=== PATIENT | male | born 1980 | race Caucasian/White ===

== ENCOUNTER 2016-04-20 11:11 | Emergency (ER) | payer MEDICAID, OTHER ==
[~2016-04-20 11:11] MED LIST: BUPR15TAXL PO; MINI1CAP PO; TRAZ150T14 PO; TRAZ1TAB25 PO
[2016-04-20] MEDS ORDERED: MAGNESIUM CITRATE 300 ML BTL As Ordered ONE (12:17)
--- NOTE | 2016-04-20 12:26 | EDDOCDS ---
Nurse's Notes [facility] Name: Christiano Pedro Age: 35 yrs Sex: Male : 1980 Arrival Date: 04/20/2016 Time: 11:11 Bed TR2 Private MD: NO PRIMARY PHYSICIAN, . Diagnosis: Constipation Presentation: 04/20 11:18 Presenting complaint: Patient states: hx IBS- no appetite, losing weight, not having srm regular BM's. left sided abd pain and "clenched" feeling. symptoms for a week and half- no changes in symptoms. nausea no vomiting. Risk factors: the patient reports not having a history of previous torsion. Adult Sepsis Screening: The patient does not have new or worsening altered mentation. Patient's respiratory rate is less than 22. Systolic blood pressure is greater than 100. Patient has a qSOFA score of 0- Negative Sepsis Screen. Suicide/Homicide risk assessment- the patient denies having any suicidal and/or homicidal ideations and does not present with any other emotional, behavioral or mental health complaints. 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 Transition of care: patient was not received from another setting of care. 11:18 Acuity: ATUL Level 3 srm 11:18 Method Of Arrival: Walkin/Carried/Asstd srm Triage Assessment: 11:21 General: Appears in no apparent distress, Behavior is appropriate for age, cooperative. srm Pain: Pain currently is 2 out of 10 on a pain scale. HIV screening NA for this visit Offered previously. GI: Reports nausea, mid to left sided abd pain. Historical: - Allergies: no known allergies; - Home Meds: 1. bupropion HCl 150 mg Oral Tb24 1 tab once daily 2. lamotrigine 100 mg Oral TbDL 1 tab 2 times per day 3. trazodone 150 mg Oral tab 1 tab nightly 4. Suboxone 8-2 mg SL subl 1 tab once daily - PMHx: Anxiety Disorder; Bipolar disorder; Depression; IBS; - PSHx: L elbow repair; - Social history: Smoking status: Patient uses tobacco products, current every day smoker. No barriers to communication noted, The patient speaks fluent Occitan, Speaks appropriately for age. - Family history: Not pertinent. - : The pt / caregiver states he / she is not on anticoagulants. Home medication list is obtained from the patient. - Exposure Risk Screening:: None identified. Screenin:23 Screening information is obtained from the patient. Fall risk: No risks identified. ttb Assistance ADL's: requires no assistance with activities of daily living. Abuse/DV Screen: The patient / caregiver reports he/she is: not in a situation that causes fear, pain or injury. Nutritional screening: No deficits noted. Advance Directives: Currently, there is no health care proxy. home support is adequate. Assessment: 12:23 General: Appears in no apparent distress, well nourished, well groomed, Behavior is ttb appropriate for age, cooperative, pleasant. Pain: Location: abd : generalized. Neurological: Level of Consciousness is awake, alert. Cardiovascular: Chest pain is denied. Respiratory: No deficits noted. Airway is patent Respiratory effort is even, unlabored, Denies cough, shortness of breath. GI: Abdomen is non- distended Bowel sounds present X 4 quads. Abd is soft Reports constipation. Derm: Skin is normal. Injury Description: No known injury. Vital Signs: 11:12 BP 131 / 72; Pulse 113; Resp 18 S; Temp 98.6; Pulse Ox 97% on R/A; Weight 72.57 kg (R); dd6 Height 5 ft. 10 in. (177.80 cm) (R); 11:12 Body Mass Index 22.96 (72.57 kg, 177.80 cm) dd6 Vitals: 11:12 Log In Time: April 20, 2016 at 11:10. dd6 ED Course: 11:12 Patient visited by Amilcar Romo PCA. dd6 11:12 NO PRIMARY PHYSICIAN, . is Private Physician. dd6 11:12 Patient moved to Waiting dd6 11:13 Patient moved to Pre RCE dd6 11:20 Triage Initiated srm 11:59 Patient moved to Triage 1 mlb1 12:04 Jeremy Guzman PA is PHCP. btw 12:04 Sariah Sarah MD is Attending Physician. btw 12:04 Patient visited by Jeremy Guzman PA. btw 12:15 [facility] is Referral Physician. btw 12:23 Patient moved to TR2 mlb1 12:23 The patient / caregiver is instructed regarding the plan of care and ED course. Patient ttb has correct armband on for positive identification. 12:23 No IV's were initiated during this patient's visit. No procedures done that require ttb assistance. Administered Medications: 12:22 Drug: Magnesium Citrate 300 ml [magnesium citrate oral solution (300 mL)] Route: PO; ttb 12:22 Follow up: Response: Med's dispensed home ttb Order Results: There are currently no results for this order. Outcome: 12:16 Discharge ordered by Provider. btw 12:23 Discharge Assessment: Patient awake, alert and oriented x 3. No cognitive and/or ttb functional deficits noted. Patient verbalized understanding of disposition instructions. Patient awake and alert. patient administered narcotics - no. The following High Risk Discharge criteria are identified: None. Discharged to home ambulatory. Condition: good Condition: stable Condition: improved. Discharge instructions given to patient, Instructed on discharge instructions, follow up and referral plans. medication usage, Demonstrated understanding of instructions, medications, Pt was receptive of discharge instructions/ teaching. Prescriptions given X meds dispensed home: instructions given. No special radiology studies were completed. Property :Personal belongings accompany Pt. 12:25 Work note provided to patient. ttb 12:25 Patient left the ED. ttb Signatures: Cris Whelan, RN RN Simeon Petty RN RN mlb1 Amilcar Romo, DULCE SENIOR SUPPLY CHAIN ANALYST dd6 Jeremy Guzman PA PA btw Conner, Teresa, RN RN ttb MTDD
--- NOTE | 2016-04-20 12:26 | EDDOCDS ---
Physician Documentation [facility] Name: Christiano Pedro Age: 35 yrs Sex: Male : 1980 Arrival Date: 04/20/2016 Time: 11:11 Bed TR2 Private MD: NO PRIMARY PHYSICIAN, . Disposition: 04/20/16 12:16 Discharged to Home/Self Care. Impression: Constipation. - Condition is Stable. - Discharge Instructions: Constipation, Adult, [id number]. - Medication Reconciliation, Local Pharmacy Hours, Work Release Form - 1 day form. - [facility] up: [facility]; When: Call to arrange an appointment; Reason: Further diagnostic work-up, Recheck today's complaints, Continuance of care. - Problem is an acute exacerbation. - Symptoms are unchanged. Historical: - Allergies: no known allergies; - Home Meds: 1. bupropion HCl 150 mg Oral Tb24 1 tab once daily 2. lamotrigine 100 mg Oral TbDL 1 tab 2 times per day 3. trazodone 150 mg Oral tab 1 tab nightly 4. Suboxone 8-2 mg SL subl 1 tab once daily - PMHx: Anxiety Disorder; Bipolar disorder; Depression; IBS; - PSHx: L elbow repair; - Social history: Smoking status: Patient uses tobacco products, current every day smoker. No barriers to communication noted, The patient speaks fluent Malagasy, Speaks appropriately for age. - Family history: Not pertinent. - : The pt / caregiver states he / she is not on anticoagulants. Home medication list is obtained from the patient. - Exposure Risk Screening:: None identified. Vital Signs: 04/20 11:12 BP 131 / 72; Pulse 113; Resp 18 S; Temp 98.6; Pulse Ox 97% on R/A; Weight 72.57 kg / dd6 159.99 lbs (R); Height 5 ft. 10 in. (177.80 cm) (R); 11:12 Body Mass Index 22.96 (72.57 kg, 177.80 cm) dd6 MDM: 12:13 Magnesium Citrate Liquid 300 ml PO once; Dispense home with pt. ordered. btw 12:24 Financial registration complete. lg Administered Medications: 12:22 Drug: Magnesium Citrate 300 ml [magnesium citrate oral solution (300 mL)] Route: PO; ttb 12:22 Follow up: Response: Med's dispensed home ttb Signatures: Cris Whelan, GEORGINA RN Nils Aranda, Jeremy Robertson lg, PA PA btw Conner, Teresa, RN RN tteileen MTDD
--- NOTE | 2016-04-22 13:26 | EDDOCDS ---
Physician Documentation [facility] Name: Christiano Pedro Age: 35 yrs Sex: Male : 1980 Arrival Date: 04/20/2016 Time: 11:11 Bed TR2 Private MD: NO PRIMARY PHYSICIAN, . Disposition: 04/20/16 12:16 Discharged to Home/Self Care. Impression: Constipation. - Condition is Stable. - Discharge Instructions: Constipation, Adult, [id number]. - Medication Reconciliation, Local Pharmacy Hours, Work Release Form - 1 day form. - Follow up: [facility]; When: Call to arrange an appointment; Reason: Further diagnostic work-up, Recheck today's complaints, Continuance of care. - Problem is an acute exacerbation. - Symptoms are unchanged. Historical: - Allergies: no known allergies; - Home Meds: 1. bupropion HCl 150 mg Oral Tb24 1 tab once daily 2. lamotrigine 100 mg Oral TbDL 1 tab 2 times per day 3. trazodone 150 mg Oral tab 1 tab nightly 4. Suboxone 8-2 mg SL subl 1 tab once daily - PMHx: Anxiety Disorder; Bipolar disorder; Depression; IBS; - PSHx: L elbow repair; - Social history: Smoking status: Patient uses tobacco products, current every day smoker. No barriers to communication noted, The patient speaks fluent [place], Speaks appropriately for age. - Family history: Not pertinent. - : The pt / caregiver states he / she is not on anticoagulants. Home medication list is obtained from the patient. - Exposure Risk Screening:: None identified. Vital Signs: 04/20 11:12 BP 131 / 72; Pulse 113; Resp 18 S; Temp 98.6; Pulse Ox 97% on R/A; Weight 72.57 kg / dd6 159.99 lbs (R); Height 5 ft. 10 in. (177.80 cm) (R); 11:12 Body Mass Index 22.96 (72.57 kg, 177.80 cm) dd6 MDM: 12:13 Magnesium Citrate Liquid 300 ml PO once; Dispense home with pt. ordered. btw 12:24 Financial registration complete. lg 14:58 T-Sheet-- Draft Copy was scanned into [employer] and attached to record. gb 15:50 [facility] Payment Agreement was scanned into [employer] and attached to record. lg Administered Medications: 12:22 Drug: Magnesium Citrate 300 ml [magnesium citrate oral solution (300 mL)] Route: PO; ttb 12:22 Follow up: Response: Med's dispensed home ttb Signatures: Cris Whelan, RN RN [facility] Aby Rodriguez, Reg Reg gb Nils Malone, Reg Reg lg Jeremy Guzman PA PA btw Maria Del Carmen Gomez RN RN ttb The chart was reviewed and I authenticate all verbal orders and agree with the evaluation and treatment provided.Attachments: 14:58 T-Sheet-- Draft Copy gb 15:50 [facility] Payment Agreement lg Chart Complete MTDD
--- NOTE | 2016-04-22 13:26 | EDDOCDS ---
Nurse's Notes [facility] Name: Christiano Pedro Age: 35 yrs Sex: Male : 1980 Arrival Date: 04/20/2016 Time: 11:11 Bed TR2 Private MD: NO PRIMARY PHYSICIAN, . Diagnosis: Constipation Presentation: 04/20 11:18 Presenting complaint: Patient states: hx IBS- no appetite, losing weight, not having srm regular BM's. left sided abd pain and "clenched" feeling. symptoms for a week and half- no changes in symptoms. nausea no vomiting. Risk factors: the patient reports not having a history of previous torsion. Adult Sepsis Screening: The patient does not have new or worsening altered mentation. Patient's respiratory rate is less than 22. Systolic blood pressure is greater than 100. Patient has a qSOFA score of 0- Negative Sepsis Screen. Suicide/Homicide risk assessment- the patient denies having any suicidal and/or homicidal ideations and does not present with any other emotional, behavioral or mental health complaints. 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 Transition of care: patient was not received from another setting of care. 11:18 Acuity: ATUL Level 3 srm 11:18 Method Of Arrival: Walkin/Carried/Asstd srm Triage Assessment: 11:21 General: Appears in no apparent distress, Behavior is appropriate for age, cooperative. srm Pain: Pain currently is 2 out of 10 on a pain scale. HIV screening NA for this visit Offered previously. GI: Reports nausea, mid to left sided abd pain. Historical: - Allergies: no known allergies; - Home Meds: 1. bupropion HCl 150 mg Oral Tb24 1 tab once daily 2. lamotrigine 100 mg Oral TbDL 1 tab 2 times per day 3. trazodone 150 mg Oral tab 1 tab nightly 4. Suboxone 8-2 mg SL subl 1 tab once daily - PMHx: Anxiety Disorder; Bipolar disorder; Depression; IBS; - PSHx: L elbow repair; - Social history: Smoking status: Patient uses tobacco products, current every day smoker. No barriers to communication noted, The patient speaks fluent Turkish, Speaks appropriately for age. - Family history: Not pertinent. - : The pt / caregiver states he / she is not on anticoagulants. Home medication list is obtained from the patient. - Exposure Risk Screening:: None identified. Screenin:23 Screening information is obtained from the patient. Fall risk: No risks identified. ttb Assistance ADL's: requires no assistance with activities of daily living. Abuse/DV Screen: The patient / caregiver reports he/she is: not in a situation that causes fear, pain or injury. Nutritional screening: No deficits noted. Advance Directives: Currently, there is no health care proxy. home support is adequate. Assessment: 12:23 General: Appears in no apparent distress, well nourished, well groomed, Behavior is ttb appropriate for age, cooperative, pleasant. Pain: Location: abd : generalized. Neurological: Level of Consciousness is awake, alert. Cardiovascular: Chest pain is denied. Respiratory: No deficits noted. Airway is patent Respiratory effort is even, unlabored, Denies cough, shortness of breath. GI: Abdomen is non- distended Bowel sounds present X 4 quads. Abd is soft Reports constipation. Derm: Skin is normal. Injury Description: No known injury. Vital Signs: 11:12 BP 131 / 72; Pulse 113; Resp 18 S; Temp 98.6; Pulse Ox 97% on R/A; Weight 72.57 kg (R); dd6 Height 5 ft. 10 in. (177.80 cm) (R); 11:12 Body Mass Index 22.96 (72.57 kg, 177.80 cm) dd6 Vitals: 11:12 Log In Time: April 20, 2016 at 11:10. dd6 ED Course: 11:12 Patient visited by Amilcar Romo PCA. dd6 11:12 NO PRIMARY PHYSICIAN, . is Private Physician. dd6 11:12 Patient moved to Waiting dd6 11:13 Patient moved to Pre RCE dd6 11:20 Triage Initiated srm 11:59 Patient moved to Triage 1 mlb1 12:04 Jeremy Guzman PA is PHCP. btw 12:04 Sariah Sarah MD is Attending Physician. btw 12:04 Patient visited by Jeremy Guzman PA. btw 12:15 [facility] is Referral Physician. btw 12:23 Patient moved to TR2 mlb1 12:23 The patient / caregiver is instructed regarding the plan of care and ED course. Patient ttb has correct armband on for positive identification. 12:23 No IV's were initiated during this patient's visit. No procedures done that require ttb assistance. 14:58 T-Sheet-- Draft Copy was scanned into [employer] and attached to record. gb 15:50 [facility] Payment Agreement was scanned into [employer] and attached to record. lg Administered Medications: 12:22 Drug: Magnesium Citrate 300 ml [magnesium citrate oral solution (300 mL)] Route: PO; ttb 12:22 Follow up: Response: Med's dispensed home ttb Order Results: There are currently no results for this order. Outcome: 12:16 Discharge ordered by Provider. btw 12:23 Discharge Assessment: Patient awake, alert and oriented x 3. No cognitive and/or ttb functional deficits noted. Patient verbalized understanding of disposition instructions. Patient awake and alert. patient administered narcotics - no. The following High Risk Discharge criteria are identified: None. Discharged to home ambulatory. Condition: good Condition: stable Condition: improved. Discharge instructions given to patient, Instructed on discharge instructions, follow up and referral plans. medication usage, Demonstrated understanding of instructions, medications, Pt was receptive of discharge instructions/ teaching. Prescriptions given X meds dispensed home: instructions given. No special radiology studies were completed. Property :Personal belongings accompany Pt. 12:25 Work note provided to patient. ttb 12:25 Patient left the ED. ttb Signatures: Cris Whelan, RN RN [facility] Aby Rodriguez, Reg Reg gb Nils Malone, Reg Reg lg Simeon Schofield RN RN mlb1 Amilcar Romo, RELAY SHOP TESTER RELAY SHOP TESTER dd6 Jeremy Guzman PA PA btw Maria Del Carmen Gomez RN RN ttb Chart Complete MTDD
--- NOTE | 2016-04-22 13:26 | EDDOCDS ---
Physician Documentation [facility] Name: Christiano Pedro Age: 35 yrs Sex: Male : 1980 Arrival Date: 04/20/2016 Time: 11:11 Bed TR2 Private MD: NO PRIMARY PHYSICIAN, . Disposition: 04/20/16 12:16 Discharged to Home/Self Care. Impression: Constipation. - Condition is Stable. - Discharge Instructions: Constipation, Adult, [id number]. - Medication Reconciliation, Local Pharmacy Hours, Work Release Form - 1 day form. - Follow up: [facility]; When: Call to arrange an appointment; Reason: Further diagnostic work-up, Recheck today's complaints, Continuance of care. - Problem is an acute exacerbation. - Symptoms are unchanged. Historical: - Allergies: no known allergies; - Home Meds: 1. bupropion HCl 150 mg Oral Tb24 1 tab once daily 2. lamotrigine 100 mg Oral TbDL 1 tab 2 times per day 3. trazodone 150 mg Oral tab 1 tab nightly 4. Suboxone 8-2 mg SL subl 1 tab once daily - PMHx: Anxiety Disorder; Bipolar disorder; Depression; IBS; - PSHx: L elbow repair; - Social history: Smoking status: Patient uses tobacco products, current every day smoker. No barriers to communication noted, The patient speaks fluent Central African, Speaks appropriately for age. - Family history: Not pertinent. - : The pt / caregiver states he / she is not on anticoagulants. Home medication list is obtained from the patient. - Exposure Risk Screening:: None identified. Vital Signs: 04/20 11:12 BP 131 / 72; Pulse 113; Resp 18 S; Temp 98.6; Pulse Ox 97% on R/A; Weight 72.57 kg / dd6 159.99 lbs (R); Height 5 ft. 10 in. (177.80 cm) (R); 11:12 Body Mass Index 22.96 (72.57 kg, 177.80 cm) dd6 MDM: 12:13 Magnesium Citrate Liquid 300 ml PO once; Dispense home with pt. ordered. btw 12:24 Financial registration complete. lg 14:58 T-Sheet-- Draft Copy was scanned into [employer] and attached to record. gb 15:50 [facility] [place] was scanned into [employer] and attached to record. lg Administered Medications: 12:22 Drug: Magnesium Citrate 300 ml [magnesium citrate oral solution (300 mL)] Route: PO; ttb 12:22 Follow up: Response: Med's dispensed home ttb Signatures: Cris Whelan, RN RN [facility] Aby Rodriguez, Reg Reg gb Nils Malone, Reg Reg lg Jeremy Guzman PA PA btw Maria Del Carmen Gomez RN RN ttb The chart was reviewed and I authenticate all verbal orders and agree with the evaluation and treatment provided.Attachments: 14:58 T-Sheet-- Draft Copy gb 15:50 [facility] [place] lg Chart Complete MTDD
== END 2016-04-20 12:25 | disposition home or self-care (01) ==
LOC: M ED 11:11
DX: K59.00 Constipation, unspecified (principal); F31.9 Bipolar disorder, unspecified; F41.9 Anxiety disorder, unspecified; K58.9 Irritable bowel syndrome, unspecified; F17.210 Nicotine dependence, cigarettes, uncomplicated

== ENCOUNTER 2016-05-06 08:00 | Outpatient (RCR) | payer MEDICAID | END 2016-05-17 | LOC: M OUTALCOH 08:00 | PROVIDERS: ATTEND Psychiatry & Neurology Psychiatry | DX: F12.10 Cannabis abuse, uncomplicated (principal); F11.20 Opioid dependence, uncomplicated; F19.20 Other psychoactive substance dependence, uncomplicated; F17.200 Nicotine dependence, unspecified, uncomplicated ==

== ENCOUNTER 2016-06-22 16:11 | Inpatient (IN) | payer OTHER ==
[~2016-06-22] VITALS: Ht 177.8 cm; Wt 55.8 kg
[2016-06-22] MEDS ORDERED: SUBO8MIS SL (16:34)
[2016-06-22] MEDS ORDERED: LAMI1TAB7 PO (16:34)
[2016-06-22 18:33] LABS: BASO % 0.4 % (0.0-1.0); EOS # 0.1 K/mm3 (0.0-0.50); EOS % 2.1 % (0.0-3.0); LARGE UNSTAINED CELL # 0.1 K/mm3 (0.0-0.4); LARGE UNSTAINED CELL % 2.3 % (0.0-4.0); LYMPH # 1.8 K/mm3 (1.5-4.5); LYMPH % 34.4 % (24.0-44.0); MEAN CORPUSCULAR HEMOGLOBIN 29.4 pg (27.0-33.0); MEAN CORPUSCULAR HGB CONC 33.7 g/dl (32.0-36.5); MEAN CORPUSCULAR VOLUME 87.1 fl (80.0-96.0); MONO # 0.3 K/mm3 (0.0-0.8); MONO % 5.6 % (0.0-5.0); NEUTROPHILS # 2.7 K/mm3 (1.8-7.7); NEUTROPHILS % 55.1 % (36.0-66.0); PLATELET COUNT, AUTOMATED 198 k/mm3 (150-450); RED CELL DISTRIBUTION WIDTH 12.7 % (11.5-14.5); WHITE BLOOD COUNT 4.9 K/mm3 (4.0-10.0)
[2016-06-22 18:38] LABS: VENOUS BASE EXCESS 1.7 (-2.0-2.0); VENOUS O2 SATURATION 77.9 % (60.0-80.0); VENOUS PARTIAL PRESSURE CO2 56.9 mmHg (38.0-50.0); VENOUS PARTIAL PRESSURE O2 41.9 mmHg (30.0-50.0); VENOUS STANDARD HCO3 25.4 MEQ/L
--- NOTE | 2016-06-22 18:48 | REP ---
Chest two views HISTORY: Dizziness Comparison: None The lungs are clear. The heart is normal in size. The pulmonary vasculature is normal in appearance. The bony structure is intact. IMPRESSION: No acute disease. Signed by Navdeep Rachel MD 06/22/2016 06:40 P
[2016-06-22 19:09] LABS: ANION GAP 8 MEQ/L (8-16); BLOOD UREA NITROGEN 17 MG/DL (7-18); CALCIUM LEVEL 9.3 MG/DL (8.5-10.1); CARBON DIOXIDE LEVEL 31 MEQ/L (21-32); CHLORIDE LEVEL 87 MEQ/L (98-107); CREATININE FOR GFR 1.13 MG/DL (0.70-1.30); GLOMERULAR FILTRATION RATE > 60.0 (>60); POTASSIUM SERUM 4.6 MEQ/L (3.5-5.1); SODIUM LEVEL 126 MEQ/L (136-145); T UPTAKE 33 % (33-40); THYROXINE (T4) 11.1 UG/DL (4.5-12.0)
[2016-06-22 19:12] LABS: GLUCOSE, FASTING 800 MG/DL (70-105)
[2016-06-22] MEDS ORDERED: INSULIN HUMAN REGULAR 100 UNITS in NS 99 ML IV SCH ×2 (19:36→20:30)
[2016-06-22] MEDS ORDERED: PRAZ1CAP PO (19:36)
[2016-06-22] MEDS ORDERED: BUPR150T3 PO (19:36)
[2016-06-22] MEDS ORDERED: CYCL10TA PO (19:37)
[2016-06-22] MEDS ORDERED: INSULIN IV RATE CHANGE DOCUMENTATION ML/HR XX SCH (19:45)
[2016-06-22] MEDS ORDERED: HumuLIN R (REGULAR) INSULIN (NovoLIN R) **100U/ML** PER UNIT As Ordered ONE (20:20)
[2016-06-22] MEDS ORDERED: CYCLOBENZAPRINE 10 MG TAB PO PRN (21:45)
[2016-06-22] MEDS ORDERED: ONDANSETRON 4 MG TAB (S0181) PO PRN (21:45)
--- NOTE | 2016-06-22 22:25 | HPEPDOC ---
General Date of Admission Jun 22, 2016 at 21:06 Primary Care Physician: MARIA DOLORES WATSON DO Attending Physician: LIBBY RUIZ MD Chief Complaint The patient is a 36-year-old male admitted with a reason for visit of Hyperosmolar Non-Ketotic State. Source: Patient, RN notes reviewed, Old records Exam Limitations: No limitations Timing/Duration: Week(s) Severity: Moderate Associated Symptoms: Nausea, Shortness of breath, Weakness, Dizziness History of Present Illness Mr. Pedro is a 36 year old male who presents to [facility]'s Emergency Department with dizziness, lightheadedness, and weight loss. He is accompanied by his mother. Past medical history is significant for anxiety, polysubstance abuse, insomnia, muscle spasms, irritable bowel syndrome, hepatitis C, bipolar disorder, post- traumatic stress disorder. Patient states that for the past month he has had increased thirst, hunger and 15# weight loss. He presented to the ED because he thought he had an infection. He had been receiving care at an inpatient treatment facility during the month of May when he developed an abscess on his right arm. He eventually received treatment at a nearby hospital where the abscess was incised and drained; and was put on two antibiotics (Bactrim, Sulfamethoxazole/ Trimethoprim). He was released from the treatment facility about a week ago, but continued to have increased thirst and hunger. He states that he has drank approximately 8 gallons of water since Monday. He describes symptoms of dizziness (without faqll), fatigue, hyperacusis, nausea, increased urinary frequency, shortness of breath, numbness in a third digit of the left hand, and constipation. Denies the following: headache, fever, night sweats, chills, sore throat, changes to hearing and/or vision, chest pain, hematuria, melena, hematochezia, diarrhea, swelling in an extremity. Hospitalist was called and patient was admitted. Home Medications Scheduled Buprenorphine/Naloxone (Suboxone 8-2 mg) 1 Mis Mis 1 MIS SL DAILY (Reported) Bupropion Hcl (Bupropion HCl Xl) 150 Mg Tab 150 MG PO DAILY (Reported) Lamotrigine (Lamictal) 100 Mg Tab 100 MG PO BID (Reported) Prazosin Hcl (Prazosin HCl) 1 Mg Cap 1 MG PO QHS (Reported) NEW MED, HAS NOT STARTED YET Trazodone HCl (Trazodone HCl) 150 Mg Tab 150 MG PO QHS (Reported) Scheduled PRN Cyclobenzaprine HCl (Cyclobenzaprine HCl) 10 Mg Tab 10 MG PO TID PRN PRN MUSCLE SPASMS (Reported) Allergies Coded Allergies: No Known Allergies (Verified Allergy, Unknown, 10/03/04) Past Medical History Medical History 1. Anxiety 2. Polysubstance abuse 3. Insomnia 4. Muscle spasms 5. Irritable bowel syndrome, diet controlled 6. Hepatitis C, successfully treated 7. Bipolar disorder 8. Post-traumatic stress disorder Surgical History 1. Triceps tendon partial laceration repair Family History Significant Family History: Diabetes Social History * Smoker: current smoker (1/2 PPD; tobacco use for 20+ years) Alcohol: Denies Drugs: heroin (relapsed September 2015), marijuana Recent Travel/Sick Contacts: Denies: Recent sick contacts, Recent travel Psychosocial History: Anxiety, Bipolar Lives independently with roommate Operates a [place] house No EtOH No pets No environmental exposure Review of Symptoms Constitutional: Reports: Fatigue, Weakness, Weight Loss (15#), Denies: Chills, Fever, Night Sweats Eyes: Denies: Vision change ENT: Denies: Head Aches, Sore Throat Skin: Reports: Lesions (small 1mm pustule on medial antecubital region of right forearm) Pulmonary: Denies: Cough, Dyspnea Cardiovascular: Reports: Lt Headedness, Denies: Chest Pain, Edema Gastrointestinal: Reports: Abdominal Pain, Constipation, Nausea, Denies: Diarrhea, Hematochezia, Melena, Vomiting Genitourinary: Reports: Frequency, Denies: Hematuria Hematologic: Denies: Bruising Endocrine: Reports: Polydipsia, Polyphagia, Polyuria Musculoskeletal: Reports: Spasms, Denies: Back Pain Neurological: Reports: Numbness, Weakness, Denies: Change in speech, Confusion Psych: Reports: Anxiety Physical Examination General Exam: Positive: Alert, Cooperative, No Acute Distress Eye Exam: Positive: Conjunctiva & lids normal, EOMI, PERRLA, Negative: Sclera icteric ENT Exam: Positive: Atraumatic, Nares Patent, Tongue Midline, Negative: Mucous membr. moist/pink Neck Exam: Positive: Supple, Negative: JVD, Lymphadenopathy, thyromegaly Chest Exam: Positive: Clear to auscultation, Normal air movement Heart Exam: Positive: Normal S1, Normal S2, Rate Normal, Negative: Murmurs, Rubs Telemetry: Positive: No significant arrhythmia, Sinus Abdomen Exam: Positive: Normal bowel sounds, Soft, Tenderness, Negative: Hepatospenomegaly Extremity Exam: Positive: Normal pulses, Negative: Clubbing, Cyanosis, Edema, Swelling, Tenderness Skin Exam: Positive: Nl turgor and temperature Neuro Exam: Positive: Cranial Nerves 3-12 NL, Normal Speech, Strength at 5/5 X4 ext Psych Exam: Positive: Oriented x 3 Vital Signs T 98.3 HR 88 RR 16 BP 130/78 O2 94% RA Height (in): 70 Weight (kg): 63.503 BMI (kg): 20.1 Laboratory Data Labs 24H Laboratory Tests 2 06/22/16 18:23: Anion Gap 8, B-Hydroxybutyrate 3.59H, White Blood Count 4.9, Red Blood Count 5.38, Hemoglobin 15.8, Hematocrit 46.9, Mean Corpuscular Volume 87.1, Mean Corpuscular Hemoglobin 29.4, Mean Corpuscular Hemoglobin Concent 33.7, Red Cell Distribution Width 12.7, Platelet Count 198, Neutrophils (%) (Auto) 55.1, Lymphocytes (%) (Auto) 34.4, Monocytes (%) (Auto) 5.6H, Eosinophils (%) (Auto) 2.1, Basophils (%) (Auto) 0.4, Neutrophils # (Auto) 2.7, Lymphocytes # (Auto) 1.8, Monocytes # (Auto) 0.3, Eosinophils # (Auto) 0.1, Basophils # (Auto) 0.0, Blood Gas Bicarbonate Standard 25.4, Blood Urea Nitrogen 17, Creatinine 1.13, Sodium Level 126L, Potassium Level 4.6, Chloride Level 87L, Carbon Dioxide Level 31, Calcium Level 9.3, Free Thyroxine Index 3.7, Glomerular Filtration Rate > 60.0, Large Unclassified Cells # 0.1, Large Unclassified Cells % 2.3, Thyroid Stimulating Hormone (TSH) 0.828, Thyroxine (T4) 11.1, Triiodothyronine ( T3) Uptake 33, Urine Amorphous Sediment , Urine Appearance CLEAR, Urine Color COLORLESS, Urine pH 7.0, Urine Specific [place] 1.025, Urine Protein NEGATIVE, Urine Glucose (UA) 3+H, Urine Ketones TRACEH, Urine Urobilinogen 0.2, Urine Bilirubin NEGATIVE, Urine Leukocyte Esterase NEGATIVE, Urine Bacteria (Auto) NEGATIVE, Urine Blood NEGATIVE, Urine Calcium Carbonate Cryst(Auto) , Urine Calcium Oxalate Cryst (Auto) , Urine Calcium Phosphate [place] (Auto) , Urine Cellular Casts , Urine Cystine Crystals , Urine Granular Casts (Auto) , Urine Hyaline Casts (Auto) 0, Urine Leucine Crystals , Urine Mucus (Auto) , Urine Nitrite NEGATIVE, Urine Oval Fat Bodies (Auto) , Urine RBC (Auto) 1, Urine Renal Epithelial Cells , Urine Sperm (Auto) , Urine Squamous Epithelial Cells 0 , Urine Transitional Epithelial Cells , Urine Trichomonas (Auto) , Urine Triple Phosphate Cryst (Auto) , Urine Tyrosine Crystals , Urine Uric Acid Crystals ( Auto) , Urine WBC (Auto) 0, Urine Waxy Casts (Auto) , Urine Yeast-Like Cells ( Auto) , Venous Blood Base Excess 1.7, Venous Blood pH 7.329L, Venous Blood Partial Pressure CO2 56.9H, Venous Blood Partial Pressure O2 41.9, Venous Blood Total Carbon Dioxide 31.0H, Venous Blood HCO3 29.3H, Venous Blood Oxygen Saturation 77.9 CBC/BMP Laboratory Tests 06/22/16 18:23 Calcium Level 9.3, Red Blood Count 5.38, Mean Corpuscular Volume 87.1, Mean Corpuscular Hemoglobin 29.4, Mean Corpuscular Hemoglobin Concent 33.7, Red Cell Distribution Width 12.7, Neutrophils (%) (Auto) 55.1, Lymphocytes (%) (Auto) 34.4, Monocytes (%) (Auto) 5.6 H, Eosinophils (%) (Auto) 2.1, Basophils (%) ( Auto) 0.4, Neutrophils # (Auto) 2.7, Lymphocytes # (Auto) 1.8, Monocytes # (Auto ) 0.3, Eosinophils # (Auto) 0.1, Basophils # (Auto) 0.0 RAD Interpretation STUDY: CXR (negative) Rad Actions: Report Reviewed Assessment/Plan 36 year old male who presents with dizziness, lightheadedness, and weight loss determined to have hyperglycemic hyperosmolar syndrome. Problems (1) Hyperosmolar non-ketotic state in patient with type 2 diabetes mellitus Status: Acute Problem Text: Administer insulin drip to control hyperglycemia Check A1c: 12.7 Monitor magnesium, phosphorus as derangements are possible due to diuresis - P: 3.2 Obtain lipase level as patients expressed subjective abdominal pain which could represent pancreatitis - Lipase: 88 Obtain serial troponins - ACS can also cause derangements in glucose Administer IVF if needed NPO Diabetic teaching provided by nursing Monitor labs (2) Hyponatremia Status: Acute Problem Text: Likely multifactorial, but could possibly be hypovolemic or pseudohyponatremic Monitor with BMP Provide IVF if improvement not adequate after management of HHS (3) ALEC (acute kidney injury) Status: Acute Problem Text: Likely multifactorial and related to HHS Will obtain updated BMP and determine is IVF needed at that time (4) Skin pustule Status: Acute Problem Text: Obtain U/S of right antecubital region to assess for fluid collection - No drainable abscess seen - Some edema noted No Abx at this time since no WBC count, afebrile, normal heart rate Obtain blood cultures x2 since history of polysubstance abuse (5) Polysubstance abuse Status: Chronic Problem Text: Obtain urine toxicology screen Patient has history of relapse in September 2015 Was in treatment facility for violating parole and testing positive for marijuana Provide Suboxone for patient while hospitalized (6) Nicotine dependence Status: Chronic Problem Text: Nicotine patch, 14mg Plan / VTE VTE Prophylaxis Ordered?: Yes (Lovenox 40mg SC daily) Plan Plan HHS - NPO until glucose better controlled - Diabetic teaching by nursing - A1c - Mg, P, lipase levels - Serial troponins - IVF @100 if needed for management of hyponatremia and ALEC Skin pustule - U/S of right antecubital region to assess for fluid collection - Blood cx x2 Hyponatremia - Monitor with labs - IVF if needed ALEC - IVF if needed Polysubstance abuse - Suboxone - Urine toxicology - Offer hepatitis C / HIV testing Nicotine dependence - Nicotine patch 14mg Disposition Admit to ICU Anticipated hospitalization: 2 nights Diet: Make NPO Activity: Continue Current Diagnostics: Check Labs, Repeat Labs in AM, Obtain Cultures, Ultrasound Anticipated Discharge: Home VIET RODRÍGUEZ Jun 22, 2016 22:25
[2016-06-22 22:47] LABS: ANION GAP 9 MEQ/L (8-16); BLOOD UREA NITROGEN 16 MG/DL (7-18); CALCIUM LEVEL 9.8 MG/DL (8.5-10.1); CARBON DIOXIDE LEVEL 31 MEQ/L (21-32); CHLORIDE LEVEL 97 MEQ/L (98-107); CREATININE FOR GFR 0.84 MG/DL (0.70-1.30); GLOMERULAR FILTRATION RATE > 60.0 (>60); GLUCOSE, FASTING 276 MG/DL (70-105); PHOSPHORUS LEVEL 3.2 MG/DL (2.5-4.9); POTASSIUM SERUM 3.7 MEQ/L (3.5-5.1); SODIUM LEVEL 137 MEQ/L (136-145)
[2016-06-22 23:00] VITALS: BP 130/82
[2016-06-22] MEDS ORDERED: GLUCOSE 4 GM CHEW TABLET PO PRN (23:30)
[2016-06-22] MEDS ORDERED: GLUCAGON FOR INJ 1 MG VIAL (J1610) SC PRN (23:30)
[2016-06-22] MEDS ORDERED: DEXTROSE 50% 50 ML SYRINGE IV PRN (23:30)
[2016-06-23] MEDS ORDERED: HumaLOG INSULIN (NovoLOG) PER UNIT SC STA (00:38)
[2016-06-23 02:00] VITALS: BP 117/63
[2016-06-23 04:00] VITALS: BP 124/67
[2016-06-23 05:15] LABS: BASO % 0.4 % (0.0-1.0); EOS # 0.1 K/mm3 (0.0-0.50); EOS % 2.4 % (0.0-3.0); LARGE UNSTAINED CELL # 0.1 K/mm3 (0.0-0.4); LARGE UNSTAINED CELL % 2.5 % (0.0-4.0); LYMPH # 1.8 K/mm3 (1.5-4.5); LYMPH % 33.9 % (24.0-44.0); MEAN CORPUSCULAR HEMOGLOBIN 29.2 pg (27.0-33.0); MEAN CORPUSCULAR HGB CONC 36.4 g/dl (32.0-36.5); MONO # 0.3 K/mm3 (0.0-0.8); MONO % 5.5 % (0.0-5.0); NEUTROPHILS # 2.7 K/mm3 (1.8-7.7); NEUTROPHILS % 55.3 % (36.0-66.0); PLATELET COUNT, AUTOMATED 170 k/mm3 (150-450); RED CELL DISTRIBUTION WIDTH 12.7 % (11.5-14.5); WHITE BLOOD COUNT 4.8 K/mm3 (4.0-10.0)
[2016-06-23 05:27] LABS: MEAN CORPUSCULAR VOLUME 80.3 fl (80.0-96.0)
[2016-06-23 05:34] LABS: ANION GAP 8 MEQ/L (8-16); BLOOD UREA NITROGEN 16 MG/DL (7-18); CALCIUM LEVEL 8.5 MG/DL (8.5-10.1); CARBON DIOXIDE LEVEL 31 MEQ/L (21-32); CHLORIDE LEVEL 99 MEQ/L (98-107); CREATININE FOR GFR 0.67 MG/DL (0.70-1.30); GLOMERULAR FILTRATION RATE > 60.0 (>60); GLUCOSE, FASTING 210 MG/DL (70-105); MAGNESIUM LEVEL 1.6 MG/DL (1.8-2.4); POTASSIUM SERUM 3.5 MEQ/L (3.5-5.1); SODIUM LEVEL 138 MEQ/L (136-145)
[2016-06-23] MEDS ORDERED: MAG SULF 1GM/100ML (MAG RUN) 1 GM in APPROPRIATE DILUENT 1 EA IV ONE (06:15)
[2016-06-23] MEDS: LEVEMIR (INSULIN DETEMIR) 1 UNITS/0.01ML SC SCH ×2 (06:49→10:27)
[2016-06-23 08:00] VITALS: BP 123/60
[2016-06-23] MEDS: HumaLOG INSULIN (NovoLOG) PER UNIT SC SCH ×3 (08:30→17:30)
[2016-06-23] MEDS: NICOTINE 14 MG/24 HR TRANSDERMAL TD SCH (08:31)
[2016-06-23] MEDS: lamoTRIgine 100MG TAB PO SCH ×3 (08:31→21:26)
[2016-06-23] MEDS: ENOXAPARIN 40 MG/0.4 ML SYRINGE (J1650) SC SCH (08:32)
[2016-06-23 10:00] VITALS: BP 119/80
--- NOTE | 2016-06-23 10:09 | REP ---
RIGHT UPPER EXTREMITY ULTRASOUND: Real-time sonographic evaluation of the right upper extremity is performed in the antecubital region to evaluate for possible fluid collection. Reportedly an abscess was drained 06/11/2016. In the right antecubital fossa, there is soft tissue edema. No fluid collection is seen. IMPRESSION: No evidence of fluid collection or abscess. Signed by Tk Hirsch MD 06/23/2016 04:41 P
[2016-06-23] MEDS: BUPRENORPHINE/NALOXONE 8-2MG SUBLINGUAL TABLET(SUBOXONE) SL SCH (10:25)
[2016-06-23] MEDS: buPROPion **XL** TABLET 150MG (WELLBUTRIN XL) PO SCH (10:25)
--- NOTE | 2016-06-23 11:12 | IPNPDOC ---
Subjective Date Seen The patient was seen on 06/23/16. Subjective Chief Complaint/HPI The patient is a 36-year-old male admitted with a reason for visit of Hyperosmolar Non-Ketotic State. Events since last encounter feeling better no complaints this morning , feels sleepy , says has lost 15 ilb weight over the last 2 months has been feeling extremely thirsty and having frequency of urination for the same duration. no fever or chills, no chest pain or sob , no nusea or vomiting or diarrhea. Objective Physical Examination General Exam: Positive: Alert, Cooperative, No Acute Distress Eye Exam: Positive: Conjunctiva & lids normal, EOMI, PERRLA, Negative: Sclera icteric ENT Exam: Positive: Atraumatic, Nares Patent, Tongue Midline, Negative: Mucous membr. moist/pink Neck Exam: Positive: Supple, Negative: JVD, Lymphadenopathy, thyromegaly Chest Exam: Positive: Clear to auscultation, Normal air movement Heart Exam: Positive: Normal S1, Normal S2, Rate Normal, Negative: Murmurs, Rubs Telemetry: Positive: No significant arrhythmia, Sinus Abdomen Exam: Positive: Normal bowel sounds, Soft, Tenderness, Negative: Hepatospenomegaly Extremity Exam: Positive: Normal pulses, Negative: Clubbing, Cyanosis, Edema, Swelling, Tenderness Skin Exam: Positive: Nl turgor and temperature Neuro Exam: Positive: Cranial Nerves 3-12 NL, Normal Speech, Strength at 5/5 X4 ext Psych Exam: Positive: Oriented x 3 Assessment /Plan Problems (1) Hyperosmolar non-ketotic state in patient with type 2 diabetes mellitus Status: Acute Problem Text: sugars better this am , A1c of 12.7 . pateint started on levemir and lispro insulin. patient will need to go home with long acting insulin . will need diabetic teaching. (2) Hyponatremia Status: Resolved Problem Text: due to high sugars was in normal range after correction for sugars. (3) Skin pustule Status: Acute Problem Text: Obtain U/S of right antecubital region to assess for fluid collection - No drainable abscess seen - Some edema noted No Abx at this time since no WBC count, afebrile, normal heart rate Obtain blood cultures x2 since history of polysubstance abuse (4) Polysubstance abuse Status: Chronic Problem Text: Patient has history of relapse in September 2015 Was in treatment facility for violating parole and testing positive for marijuana Provide Suboxone for patient while hospitalized (5) Nicotine dependence Status: Chronic Problem Text: Nicotine patch, 14mg (6) Hepatitis C Status: Chronic Problem Text: status post treatment. (7) PTSD (post-traumatic stress disorder) Status: Chronic (8) Bipolar disorder Status: Chronic Plan/VTE VTE Prophylaxis Ordered?: Yes (Lovenox 40mg SC daily) Plan Diet: Make NPO Activity: Continue Current Diagnostics: Check Labs, Repeat Labs in AM, Obtain Cultures, Ultrasound Anticipated Discharge: Home VS, I&O, 24H, Counts Include [facility] At [facility] Vital Signs/I&O Vital Signs Date Time Temp Pulse Resp B/P Pulse Ox O2 Delivery O2 Flow Rate FiO2 06/23/16 08:00 97.5 73 16 123/60 95 Room Air I&O- Last 24 Hours up to 6 AM 06/23/16 06:00 Intake Total 612 ml Output Total 450 ml Balance 162 ml Laboratory Data 24H LABS Laboratory Tests 2 06/22/16 18:23: Anion Gap 8, B-Hydroxybutyrate 3.59H, White Blood Count 4.9, Red Blood Count 5.38, Hemoglobin 15.8, Hematocrit 46.9, Mean Corpuscular Volume 87.1, Mean Corpuscular Hemoglobin 29.4, Mean Corpuscular Hemoglobin Concent 33.7, Red Cell Distribution Width 12.7, Platelet Count 198, Neutrophils (%) (Auto) 55.1, Lymphocytes (%) (Auto) 34.4, Monocytes (%) (Auto) 5.6H, Eosinophils (%) (Auto) 2.1, Basophils (%) (Auto) 0.4, Neutrophils # (Auto) 2.7, Lymphocytes # (Auto) 1.8, Monocytes # (Auto) 0.3, Eosinophils # (Auto) 0.1, Basophils # (Auto) 0.0, Blood Gas Bicarbonate Standard 25.4, Blood Urea Nitrogen 17, Creatinine 1.13, Sodium Level 126L, Potassium Level 4.6, Chloride Level 87L, Carbon Dioxide Level 31, Calcium Level 9.3, Free Thyroxine Index 3.7, Glomerular Filtration Rate > 60.0, Large Unclassified Cells # 0.1, Large Unclassified Cells % 2.3, Thyroid Stimulating Hormone (TSH) 0.828, Thyroxine (T4) 11.1, Triiodothyronine ( T3) Uptake 33, Urine Amorphous Sediment , Urine Appearance CLEAR, Urine Color COLORLESS, Urine pH 7.0, Urine Specific [place] 1.025, Urine Protein NEGATIVE, Urine Glucose (UA) 3+H, Urine Ketones TRACEH, Urine Urobilinogen 0.2, Urine Bilirubin NEGATIVE, Urine Leukocyte Esterase NEGATIVE, Urine Bacteria (Auto) NEGATIVE, Urine Blood NEGATIVE, Urine Calcium Carbonate Cryst(Auto) , Urine Calcium Oxalate Cryst (Auto) , Urine Calcium Phosphate [place] (Auto) , Urine Cellular Casts , Urine Cystine Crystals , Urine Granular Casts (Auto) , Urine Hyaline Casts (Auto) 0, Urine Leucine Crystals , Urine Mucus (Auto) , Urine Nitrite NEGATIVE, Urine Oval Fat Bodies (Auto) , Urine RBC (Auto) 1, Urine Renal Epithelial Cells , Urine Sperm (Auto) , Urine Squamous Epithelial Cells 0 , Urine Transitional Epithelial Cells , Urine Trichomonas (Auto) , Urine Triple Phosphate Cryst (Auto) , Urine Tyrosine Crystals , Urine Uric Acid Crystals ( Auto) , Urine WBC (Auto) 0, Urine Waxy Casts (Auto) , Urine Yeast-Like Cells ( Auto) , Venous Blood Base Excess 1.7, Venous Blood pH 7.329L, Venous Blood Partial Pressure CO2 56.9H, Venous Blood Partial Pressure O2 41.9, Venous Blood Total Carbon Dioxide 31.0H, Venous Blood HCO3 29.3H, Venous Blood Oxygen Saturation 77.9 06/22/16 20:25: Bedside Glucose (Misc Panel) 490H 06/22/16 21:49: Bedside Glucose (Misc Panel) 340H 06/22/16 22:03: Anion Gap 9, Blood Urea Nitrogen 16, Creatinine 0.84, Sodium Level 137#, Potassium Level 3.7, Chloride Level 97L, Carbon Dioxide Level 31, Calcium Level 9.8, Glomerular Filtration Rate > 60.0, Lipase 88, Phosphorus Level 3.2, Troponin I < 0.02 06/22/16 22:17: Estimated Mean Plasma Glucose 318H, Hemoglobin A1c 12.7H 06/22/16 23:12: Bedside Glucose (Misc Panel) 67L 06/23/16 00:30: Bedside Glucose (Misc Panel) 357H 06/23/16 04:49: Anion Gap 8, White Blood Count 4.8, Red Blood Count 4.91, Hemoglobin 14.3, Hematocrit 39.4L, Mean Corpuscular Volume 80.3#, Mean Corpuscular Hemoglobin 29.2, Mean Corpuscular Hemoglobin Concent 36.4, Red Cell Distribution Width 12.7 , Platelet Count 170, Neutrophils (%) (Auto) 55.3, Lymphocytes (%) (Auto) 33.9, Monocytes (%) (Auto) 5.5H, Eosinophils (%) (Auto) 2.4, Basophils (%) (Auto) 0.4 , Neutrophils # (Auto) 2.7, Lymphocytes # (Auto) 1.8, Monocytes # (Auto) 0.3, Eosinophils # (Auto) 0.1, Basophils # (Auto) 0.0, Blood Urea Nitrogen 16, Creatinine 0.67L, Sodium Level 138, Potassium Level 3.5, Chloride Level 99, Carbon Dioxide Level 31, Calcium Level 8.5, Glomerular Filtration Rate > 60.0, Large Unclassified Cells # 0.1, Large Unclassified Cells % 2.5, Magnesium Level 1.6L, Troponin I < 0.02 06/23/16 06:14: Bedside Glucose (Misc Panel) 231H CBC/BMP Laboratory Tests 06/22/16 18:23 Calcium Level 9.3, Red Blood Count 5.38, Mean Corpuscular Volume 87.1, Mean Corpuscular Hemoglobin 29.4, Mean Corpuscular Hemoglobin Concent 33.7, Red Cell Distribution Width 12.7, Neutrophils (%) (Auto) 55.1, Lymphocytes (%) (Auto) 34.4, Monocytes (%) (Auto) 5.6 H, Eosinophils (%) (Auto) 2.1, Basophils (%) ( Auto) 0.4, Neutrophils # (Auto) 2.7, Lymphocytes # (Auto) 1.8, Monocytes # (Auto ) 0.3, Eosinophils # (Auto) 0.1, Basophils # (Auto) 0.0 06/22/16 22:03 Calcium Level 9.8 06/23/16 04:49 Calcium Level 8.5, Red Blood Count 4.91, Mean Corpuscular Volume 80.3 #, Mean Corpuscular Hemoglobin 29.2, Mean Corpuscular Hemoglobin Concent 36.4, Red Cell Distribution Width 12.7, Neutrophils (%) (Auto) 55.3, Lymphocytes (%) (Auto) 33.9, Monocytes (%) (Auto) 5.5 H, Eosinophils (%) (Auto) 2.4, Basophils (%) ( Auto) 0.4, Neutrophils # (Auto) 2.7, Lymphocytes # (Auto) 1.8, Monocytes # (Auto ) 0.3, Eosinophils # (Auto) 0.1, Basophils # (Auto) 0.0 Microbiology Microbiology 06/22/16 Blood Culture, Received Pending 06/22/16 Blood Culture, Received Pending SUNDAR ALY MD Jun 23, 2016 11:12
[2016-06-23 14:00] VITALS: BP 115/64
--- NOTE | 2016-06-23 20:21 | ECGEPIP ---
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
[2016-06-23] MEDS ORDERED: HumaLOG INSULIN (NovoLOG) PER UNIT SC SCH (21:00)
[2016-06-23] MEDS: traZODone 50 MG TAB PO SCH ×2 (21:25)
[2016-06-23] MEDS: PRAZOSIN 1 MG CAP PO SCH ×2 (21:26)
[2016-06-23 22:00] VITALS: BP 113/61
[2016-06-24 05:31] VITALS: BP 92/47
[2016-06-24 06:00] VITALS: BP 87/52
[2016-06-24 06:54] LABS: BASO % 0.4 % (0.0-1.0); EOS # 0.1 K/mm3 (0.0-0.50); EOS % 3.1 % (0.0-3.0); LARGE UNSTAINED CELL # 0.1 K/mm3 (0.0-0.4); LARGE UNSTAINED CELL % 4.9 % (0.0-4.0); LYMPH # 1.2 K/mm3 (1.5-4.5); MEAN CORPUSCULAR HGB CONC 35.3 g/dl (32.0-36.5); MEAN CORPUSCULAR VOLUME 82.1 fl (80.0-96.0); MONO # 0.1 K/mm3 (0.0-0.8); MONO % 5.3 % (0.0-5.0); NEUTROPHILS % 40.4 % (36.0-66.0); PLATELET COUNT, AUTOMATED 153 k/mm3 (150-450); RED CELL DISTRIBUTION WIDTH 12.7 % (11.5-14.5); WHITE BLOOD COUNT 2.6 K/mm3 (4.0-10.0)
[2016-06-24 06:57] LABS: ANION GAP 8 MEQ/L (8-16); BLOOD UREA NITROGEN 12 MG/DL (7-18); CALCIUM LEVEL 8.1 MG/DL (8.5-10.1); CARBON DIOXIDE LEVEL 28 MEQ/L (21-32); CHLORIDE LEVEL 104 MEQ/L (98-107); CREATININE FOR GFR 0.71 MG/DL (0.70-1.30); GLOMERULAR FILTRATION RATE > 60.0 (>60); GLUCOSE, FASTING 315 MG/DL (70-105); POTASSIUM SERUM 4.3 MEQ/L (3.5-5.1); SODIUM LEVEL 140 MEQ/L (136-145)
[2016-06-24] MEDS: HumaLOG INSULIN (NovoLOG) PER UNIT SC SCH ×3 (08:37→17:57)
[2016-06-24] MEDS: LEVEMIR (INSULIN DETEMIR) 1 UNITS/0.01ML SC SCH (08:38)
[2016-06-24] MEDS: buPROPion **XL** TABLET 150MG (WELLBUTRIN XL) PO SCH (08:39)
[2016-06-24] MEDS: lamoTRIgine 100MG TAB PO SCH ×2 (08:39→20:12)
[2016-06-24] MEDS: ENOXAPARIN 40 MG/0.4 ML SYRINGE (J1650) SC SCH (08:39)
[2016-06-24] MEDS: NICOTINE 14 MG/24 HR TRANSDERMAL TD SCH (08:39)
[2016-06-24] MEDS: BUPRENORPHINE/NALOXONE 8-2MG SUBLINGUAL TABLET(SUBOXONE) SL SCH (08:39)
[2016-06-24] MEDS ORDERED: LEVE1INJ5 SC (10:51)
--- NOTE | 2016-06-24 11:52 | IPNPDOC ---
Subjective Date Seen The patient was seen on 06/24/16. Subjective Chief Complaint/HPI The patient is a 36-year-old male admitted with a reason for visit of Hyperosmolar Non-Ketotic State. Events since last encounter no complaints. Objective Physical Examination General Exam: Positive: Alert, Cooperative, No Acute Distress Eye Exam: Positive: Conjunctiva & lids normal, EOMI, PERRLA, Negative: Sclera icteric ENT Exam: Positive: Atraumatic, Nares Patent, Tongue Midline, Negative: Mucous membr. moist/pink Neck Exam: Positive: Supple, Negative: JVD, Lymphadenopathy, thyromegaly Chest Exam: Positive: Clear to auscultation, Normal air movement Heart Exam: Positive: Normal S1, Normal S2, Rate Normal, Negative: Murmurs, Rubs Telemetry: Positive: No significant arrhythmia, Sinus Abdomen Exam: Positive: Normal bowel sounds, Soft, Tenderness, Negative: Hepatospenomegaly Extremity Exam: Positive: Normal pulses, Negative: Clubbing, Cyanosis, Edema, Swelling, Tenderness Skin Exam: Positive: Nl turgor and temperature Neuro Exam: Positive: Cranial Nerves 3-12 NL, Normal Speech, Strength at 5/5 X4 ext Psych Exam: Positive: Oriented x 3 Assessment /Plan Problems (1) Hyperosmolar non-ketotic state in patient with type 2 diabetes mellitus Status: Acute Problem Text: sugars better this am , A1c of 12.7 . pateint started on levemir and lispro insulin. patient will need to go home with long acting insulin . will need diabetic teaching. will order autoantibody levels (2) Hyponatremia Status: Resolved Problem Text: due to high sugars was in normal range after correction for sugars. (3) Skin pustule Status: Acute Problem Text: Obtain U/S of right antecubital region to assess for fluid collection - No drainable abscess seen - Some edema noted No Abx at this time since no WBC count, afebrile, normal heart rate Obtain blood cultures x2 since history of polysubstance abuse (4) Polysubstance abuse Status: Chronic Problem Text: Patient has history of relapse in September 2015 Was in treatment facility for violating parole and testing positive for marijuana Provide Suboxone for patient while hospitalized (5) Nicotine dependence Status: Chronic Problem Text: Nicotine patch, 14mg (6) Hepatitis C Status: Chronic Problem Text: status post treatment. (7) PTSD (post-traumatic stress disorder) Status: Chronic (8) Bipolar disorder Status: Chronic Plan/VTE VTE Prophylaxis Ordered?: Yes (Lovenox 40mg SC daily) Plan Diet: Make NPO Activity: Continue Current Diagnostics: Check Labs, Repeat Labs in AM, Obtain Cultures, Ultrasound Anticipated Discharge: Home VS, I&O, 24H, Fishbone Vital Signs/I&O Vital Signs Date Time Temp Pulse Resp B/P Pulse Ox O2 Delivery O2 Flow Rate FiO2 06/24/16 06:00 96.5 76 16 87/52 96 Room Air I&O- Last 24 Hours up to 6 AM 06/24/16 05:59 Intake Total 1320 ml Output Total 200 ml Balance 1120 ml Laboratory Data 24H LABS Laboratory Tests 2 06/23/16 11:42: Bedside Glucose (Misc Panel) 336H 06/23/16 13:31: Troponin I < 0.02 06/23/16 16:57: Bedside Glucose (Misc Panel) 132H 06/23/16 21:01: Bedside Glucose (Misc Panel) 357H 06/24/16 06:07: Anion Gap 8, White Blood Count 2.6L, Red Blood Count 4.66, Hemoglobin 13.5L, Hematocrit 38.2L, Mean Corpuscular Volume 82.1, Mean Corpuscular Hemoglobin 29.0 , Mean Corpuscular Hemoglobin Concent 35.3, Red Cell Distribution Width 12.7, Platelet Count 153, Neutrophils (%) (Auto) 40.4, Lymphocytes (%) (Auto) 46.0H, Monocytes (%) (Auto) 5.3H, Eosinophils (%) (Auto) 3.1H, Basophils (%) (Auto) 0.4 , Neutrophils # (Auto) 1.0L, Lymphocytes # (Auto) 1.2L, Monocytes # (Auto) 0.1, Eosinophils # (Auto) 0.1, Basophils # (Auto) 0.0, Blood Urea Nitrogen 12, Creatinine 0.71, Sodium Level 140, Potassium Level 4.3#, Chloride Level 104, Carbon Dioxide Level 28, Calcium Level 8.1L, Glomerular Filtration Rate > 60.0, Large Unclassified Cells # 0.1, Large Unclassified Cells % 4.9H CBC/BMP Laboratory Tests 06/24/16 06:07 Calcium Level 8.1 L, Red Blood Count 4.66, Mean Corpuscular Volume 82.1, Mean Corpuscular Hemoglobin 29.0, Mean Corpuscular Hemoglobin Concent 35.3, Red Cell Distribution Width 12.7, Neutrophils (%) (Auto) 40.4, Lymphocytes (%) (Auto) 46.0 H, Monocytes (%) (Auto) 5.3 H, Eosinophils (%) (Auto) 3.1 H, Basophils (%) (Auto) 0.4, Neutrophils # (Auto) 1.0 L, Lymphocytes # (Auto) 1.2 L, Monocytes # (Auto) 0.1, Eosinophils # (Auto) 0.1, Basophils # (Auto) 0.0 Microbiology Microbiology 06/22/16 Blood Culture - Preliminary, Resulted No growth after 24 hours . All specim... 06/22/16 Blood Culture - Preliminary, Resulted No growth after 24 hours . All specim... SUNDAR ALY MD Jun 24, 2016 11:52
[2016-06-24 14:00] VITALS: BP 123/78
[2016-06-24] MEDS ORDERED: MIRALAX *UNIT DOSE* 17GM PACKET PO PRN (14:30)
[2016-06-24] MEDS: traZODone 50 MG TAB PO SCH (20:13)
[2016-06-24 20:17] VITALS: BP 119/72
[2016-06-24] MEDS: PRAZOSIN 1 MG CAP PO SCH (20:17)
[2016-06-24] MEDS ORDERED: GLIMEPIRIDE 2 MG TAB PO SCH (21:00)
[2016-06-24 22:00] VITALS: BP 119/72
[2016-06-25 06:00] VITALS: BP 120/64
[2016-06-25 06:48] LABS: BASO % 0.7 % (0.0-1.0); EOS # 0.1 K/mm3 (0.0-0.50); EOS % 2.6 % (0.0-3.0); LARGE UNSTAINED CELL # 0.1 K/mm3 (0.0-0.4); LARGE UNSTAINED CELL % 3.4 % (0.0-4.0); LYMPH # 1.3 K/mm3 (1.5-4.5); LYMPH % 46.7 % (24.0-44.0); MEAN CORPUSCULAR HEMOGLOBIN 27.9 pg (27.0-33.0); MEAN CORPUSCULAR HGB CONC 33.6 g/dl (32.0-36.5); MEAN CORPUSCULAR VOLUME 83.1 fl (80.0-96.0); MONO # 0.2 K/mm3 (0.0-0.8); NEUTROPHILS # 1.1 K/mm3 (1.8-7.7); NEUTROPHILS % 39.6 % (36.0-66.0); PLATELET COUNT, AUTOMATED 148 k/mm3 (150-450); RED CELL DISTRIBUTION WIDTH 12.9 % (11.5-14.5); WHITE BLOOD COUNT 2.8 K/mm3 (4.0-10.0)
[2016-06-25 06:57] LABS: ANION GAP 6 MEQ/L (8-16); BLOOD UREA NITROGEN 10 MG/DL (7-18); CALCIUM LEVEL 8.4 MG/DL (8.5-10.1); CARBON DIOXIDE LEVEL 27 MEQ/L (21-32); CHLORIDE LEVEL 106 MEQ/L (98-107); CREATININE FOR GFR 0.63 MG/DL (0.70-1.30); GLOMERULAR FILTRATION RATE > 60.0 (>60); GLUCOSE, FASTING 291 MG/DL (70-105); POTASSIUM SERUM 4.2 MEQ/L (3.5-5.1); SODIUM LEVEL 139 MEQ/L (136-145)
[2016-06-25] MEDS ORDERED: BASA100I SC (07:59)
[2016-06-25] MEDS ORDERED: GLIM2TA PO (08:02)
[2016-06-25] MEDS: HumaLOG INSULIN (NovoLOG) PER UNIT SC SCH (08:49)
[2016-06-25] MEDS: ENOXAPARIN 40 MG/0.4 ML SYRINGE (J1650) SC SCH (09:00)
[2016-06-25] MEDS: NICOTINE 14 MG/24 HR TRANSDERMAL TD SCH (09:00)
[2016-06-25] MEDS ORDERED: LEVEMIR (INSULIN DETEMIR) 1 UNITS/0.01ML SC SCH ×2 (09:00)
[2016-06-25] MEDS: lamoTRIgine 100MG TAB PO SCH (10:28)
[2016-06-25] MEDS: buPROPion **XL** TABLET 150MG (WELLBUTRIN XL) PO SCH (10:28)
[2016-06-25] MEDS: BUPRENORPHINE/NALOXONE 8-2MG SUBLINGUAL TABLET(SUBOXONE) SL SCH (10:33)
--- NOTE | 2016-06-27 14:26 | DSES ---
DATE OF ADMISSION: 06/22/2016 DATE OF DISCHARGE: 06/25/2016 PRIMARY CARE PROVIDER: [facility] DISCHARGE DIAGNOSES: 1. New onset diabetes mellitus. 2. History of hepatitis C, treated. 3. Bipolar disorder. 4. Post traumatic stress disorder. 5. Anxiety. 6. History of polysubstance abuse and intravenous (IV) drug use. 7. Irritable bowel syndrome. 8. Skin pustule on the right antecubital region related to IV, which resolved. DISCHARGE MEDICATIONS: - Basaglar QV pen 20 units subcutaneously daily - glimepiride 2 mg at bedtime - Suboxone 8/2 one daily - bupropion 150 mg by mouth daily - cyclobenzaprine 10 mg by mouth three times a day as needed muscle spasms - lamotrigine 100 mg by mouth twice a day - prazosin 1 mg by mouth at bedtime - trazodone 150 mg by mouth at bedtime HOSPITAL COURSE: This is a 36-year-old male who presented to the hospital with nausea, shortness of breath, weakness, and dizziness and about 15 pound weight loss over the past two months with complaints of increased thirst, increased hunger, and increased urination. The patient was found to be hyperglycemic with sugars over 800 and had an A1c of 12.7. The patient was admitted for hyperglycemia and new onset diabetes mellitus. The patient did not have any acidosis or any anion gap. The patient was managed initially with IV insulin. Subsequently, the patient was changed to subcutaneous long acting insulin and short acting insulin before meals with better control of the patient's sugars. Then short acting insulin was stopped and the patient was kept on long acting insulin and started on oral hypoglycemic. At present, patient's symptoms are better. Sugar is better controlled. Vitals are stable. He is going to be discharged home in a stable condition. Laboratory work has been ordered for insulin antibodies, SHAYLEE antibodies and other antibodies related to type 1 diabetes, which are still in progress and need to be followed up as an outpatient. PHYSICAL EXAMINATION: VITAL SIGNS: Temperature 97.2, pulse 74, respiratory rate 16, blood pressure 120/64, pulse oximetry 96% in room air. GENERAL: Patient is awake, alert and oriented times, three sitting up in bed in no acute distress. HEENT: Normocephalic, atraumatic. Moist mucous membranes. Anicteric eyes. CHEST: Clear to auscultation. CARDIOVASCULAR: S1, S2. Regular. ABDOMEN: Soft. Nontender. Bowel sounds present. EXTREMITIES: No edema. LABORATORY DATA: WBC 2.8, hemoglobin 12.2, platelets 148. Sodium 139, potassium 4.2, chloride 106, BUN 10, creatinine 0.6, glucose 291, calcium 8.4. Cardiac enzymes are negative. Beta hydroxybutyrate was elevated at 3.59. Immunological tests are in progress. Antecubital fossa ultrasound with no abscess. Chest x-ray with no acute disease. DISPOSITION: Patient is discharged home in stable condition. DISCHARGE INSTRUCTIONS: Patient to followup with primary care provider within one week. Carbohydrate consistent diet. Activity as tolerated.
== END 2016-06-25 11:32 | disposition home or self-care (01) | DRG 420 ==
LOC: M ED 17:17 → M ED INP 21:06 → M ICU 23:07 → M MSPAV 06-23 09:38
PROVIDERS: ADMIT Internal Medicine; ATTEND Internal Medicine Nephrology
DX: E11.00 Type 2 diabetes mellitus with hyperosmolarity without nonketotic hyperglycemic-hyperosmolar coma (NKHHC) (principal); N17.9 Acute kidney failure, unspecified; E87.0 Hyperosmolality and hypernatremia; F41.9 Anxiety disorder, unspecified; F31.9 Bipolar disorder, unspecified; K58.9 Irritable bowel syndrome, unspecified; F43.10 Post-traumatic stress disorder, unspecified; Z79.899 Other long term (current) drug therapy; F17.200 Nicotine dependence, unspecified, uncomplicated; L08.9 Local infection of the skin and subcutaneous tissue, unspecified

== ENCOUNTER → 2016-08-02 | Outpatient (CLI) | payer OTHER ==
[~2016-08-02] MED LIST changes: +BASA100I SC; +BUPR150T3 PO; +CYCL10TA PO; +GLIM2TA PO; +LAMI1TAB7 PO; +LEVE1INJ5 SC; +PRAZ1CAP PO; +SUBO8MIS SL
[2016-08-02 08:45] LABS: MEAN CORPUSCULAR HEMOGLOBIN 28.9 pg (27.0-33.0); MEAN CORPUSCULAR HGB CONC 33.2 g/dl (32.0-36.5); MEAN CORPUSCULAR VOLUME 87.3 fl (80.0-96.0); RED CELL DISTRIBUTION WIDTH 13.8 % (11.5-14.5); WHITE BLOOD COUNT 3.6 K/mm3 (4.0-10.0)
[2016-08-02 09:22] LABS: ALBUMIN 3.9 GM/DL (3.2-5.2); ALKALINE PHOSPHATASE 71 U/L (45-117); ALT/SGPT 26 U/L (12-78); ANION GAP 5 MEQ/L (8-16); AST/SGOT 17 U/L (15-37); BILIRUBIN,TOTAL 0.2 MG/DL (0.2-1.0); BLOOD UREA NITROGEN 11 MG/DL (7-18); CALCIUM LEVEL 8.5 MG/DL (8.5-10.1); CARBON DIOXIDE LEVEL 29 MEQ/L (21-32); CHLORIDE LEVEL 109 MEQ/L (98-107); CHOLESTEROL LEVEL 181 MG/DL (<200); CREATININE FOR GFR 0.69 MG/DL (0.70-1.30); GLOMERULAR FILTRATION RATE > 60.0 (>60); GLUCOSE, FASTING 81 MG/DL (70-105); POTASSIUM SERUM 4.7 MEQ/L (3.5-5.1); SODIUM LEVEL 143 MEQ/L (136-145); TOTAL PROTEIN 6.9 GM/DL (6.4-8.2); TRIGLYCERIDES LEVEL 113 MG/DL (<150)
[2016-08-03 10:47] LABS: THYROID PEROXIDASE ANTIBODY < 28.0 U/ML (<60.0)
== END ==
LOC: M LAB 07:49
DX: E13.9 Other specified diabetes mellitus without complications (principal)

== ENCOUNTER → 2016-08-02 | Outpatient (CLI) | payer OTHER | LOC: M LAB 08:09 | PROVIDERS: ATTEND Psychiatry & Neurology Psychiatry | DX: Z51.81 Encounter for therapeutic drug level monitoring (principal); Z79.899 Other long term (current) drug therapy ==

== ENCOUNTER 2016-12-25 11:24 | Emergency (ER) | payer OTHER ==
[~2016-12-25] VITALS: Ht 177.8 cm; Wt 65.9 kg
[~2016-12-25 11:24] MED LIST changes: -TRAZ150T14 PO; +TRAZ1TAB14 PO
[2016-12-25 11:25] VITALS: BP 127/82
[2016-12-25] MEDS ORDERED: CLINDAMYCIN 150 MG CAP PO ONE (12:00)
[2016-12-25] MEDS ORDERED: CLEO300C2 PO (12:02)
== END 2016-12-25 12:24 | disposition home or self-care (01) ==
LOC: M ED 11:24
DX: L03.113 Cellulitis of right upper limb (principal); L02.414 Cutaneous abscess of left upper limb; E11.9 Type 2 diabetes mellitus without complications; K58.9 Irritable bowel syndrome, unspecified; F43.10 Post-traumatic stress disorder, unspecified; B19.20 Unspecified viral hepatitis C without hepatic coma; F19.10 Other psychoactive substance abuse, uncomplicated

== ENCOUNTER 2017-06-14 17:18 | Emergency (ER) | payer OTHER | END 2017-06-14 18:55 | disposition left against medical advice (07) | LOC: M ED 17:18 | DX: Z53.21 Procedure and treatment not carried out due to patient leaving prior to being seen by health care provider (principal) ==

== ENCOUNTER 2017-06-19 15:13 | Emergency (ER) | payer OTHER ==
[2017-06-19] MEDS: NS 1,000 ML IV (16:22)
[2017-06-19] MEDS: KETOROLAC 30 MG/ML VIAL (J1885) IV (16:22)
[2017-06-19 16:30] LABS: BASO % 0.2 % (0.0-1.0); EOS # 0.1 10^3/uL (0.0-0.50); EOS % 1.3 % (0.0-3.0); HEMATOCRIT 43.3 % (42.0-52.0); HEMOGLOBIN 15.2 g/dl (14.0-18.0); IMMATURE GRANULOCYTE % 0.2 % (0-3.0); LYMPH # 1.5 10^3/uL (1.5-4.5); LYMPH % 26.7 % (24.0-44.0); MEAN CORPUSCULAR HEMOGLOBIN 29.6 pg (27.0-33.0); MEAN CORPUSCULAR HGB CONC 35.1 g/dl (32.0-36.5); MEAN CORPUSCULAR VOLUME 84.4 fl (80.0-96.0); MONO # 0.5 10^3/uL (0.0-0.8); MONO % 9.9 % (0.0-5.0); NEUTROPHILS # 3.4 10^3/uL (1.8-7.7); NEUTROPHILS % 61.7 % (36.0-66.0); PLATELET COUNT, AUTOMATED 223 10^3/uL (150-450); RED BLOOD COUNT 5.13 10^6/uL (4.30-6.10); RED CELL DISTRIBUTION WIDTH 12.3 % (11.5-14.5); WHITE BLOOD COUNT 5.5 10^3/uL (4.0-10.0)
[2017-06-19 16:33] LABS: KETONE, URINE AUTO RFX NEGATIVE (NEGATIVE); LEUKOCYTE ESTERASE UR AUTO RFX NEGATIVE (NEGATIVE); MUCUS, URINE RFX SMALL (NEGATIVE); NITRITE, URINE AUTO RFX NEGATIVE (NEGATIVE); RBC, URINE AUTO RFX 0 /HPF (0-3); SPECIFIC GRAVITY UR AUTO RFX 1.028 (1.002-1.035); SQUAM EPITHELIAL CELL UR AURFX 0 /HPF (0-6); WBC, URINE AUTO RFX 1 /HPF (0-3)
[2017-06-19 16:58] LABS: ACETONE/KETONE 0.72 MG/DL (<2.81); ALBUMIN 3.7 GM/DL (3.2-5.2); ALBUMIN/GLOBULIN RATIO 1.06 (1.00-1.93); ALKALINE PHOSPHATASE 85 U/L (45-117); ALT/SGPT 23 U/L (12-78); ANION GAP 5 MEQ/L (8-16); AST/SGOT 17 U/L (7-37); BILIRUBIN,DIRECT < 0.1 MG/DL (0.0-0.2); BILIRUBIN,TOTAL 0.4 MG/DL (0.2-1.0); BLOOD UREA NITROGEN 14 MG/DL (7-18); CALCIUM LEVEL 9.1 MG/DL (8.5-10.1); CARBON DIOXIDE LEVEL 30 MEQ/L (21-32); CHLORIDE LEVEL 101 MEQ/L (98-107); CREATININE FOR GFR 0.81 MG/DL (0.70-1.30); GLOMERULAR FILTRATION RATE > 60.0 (>60); GLUCOSE, FASTING 318 MG/DL (70-100); LIPASE 80 U/L (73-393); POTASSIUM SERUM 4.8 MEQ/L (3.5-5.1); SODIUM LEVEL 136 MEQ/L (136-145); TOTAL PROTEIN 7.2 GM/DL (6.4-8.2)
[2017-06-19] MEDS: HumuLIN R (REGULAR) INSULIN (NovoLIN R) **100U/ML** PER UNIT IV (17:12)
[2017-06-19 17:28] LABS: ESTIMATED AVERAGE GLUCOSE 154 MG/DL (60-110)
[2017-06-19 17:58] LABS: MALB URINE SIEMENS 10.7 MG/L; MAU/CREAT RATIO 6.9 MCG/MG (0.0-30.0)
[2017-06-19 18:13] LABS: BEDSIDE GLUCOSE 97 MG/DL (70-105)
[2017-06-19 21:04] LABS: AMPHETAMINES LEVEL URINE POSITIVE (NEGATIVE); BARBITURATES URINE NEGATIVE (NEGATIVE); BENZODIAZEPINES URINE NEGATIVE (NEGATIVE); CANNABINOIDS URINE POSITIVE (NEGATIVE); COCAINE METABOLITE URINE NEGATIVE (NEGATIVE); METHADONE URINE NEGATIVE (NEGATIVE); OPIATES URINE NEGATIVE (NEGATIVE); PHENCYCLIDINE URINE NEGATIVE (NEGATIVE)
[2017-06-21 09:41] LABS: BEDSIDE GLUCOSE 329 MG/DL (70-105)
== END 2017-06-19 18:13 | disposition home or self-care (01) ==
LOC: M ED 15:13
DX: E11.65 Type 2 diabetes mellitus with hyperglycemia (principal); Z76.0 Encounter for issue of repeat prescription; Z91.120 Patient's intentional underdosing of medication regimen due to financial hardship; K58.9 Irritable bowel syndrome, unspecified; B19.20 Unspecified viral hepatitis C without hepatic coma; F19.10 Other psychoactive substance abuse, uncomplicated; F17.210 Nicotine dependence, cigarettes, uncomplicated
CPT/HCPCS: J1885

== ENCOUNTER 2017-12-07 16:40 | Emergency (ER) | payer OTHER ==
[2017-12-07] MEDS: KETOROLAC 60 MG/2 ML VIAL (J1885) IM (18:20)
== END 2017-12-07 18:59 | disposition home or self-care (01) ==
LOC: M ED 16:40
DX: S43.102A Unspecified dislocation of left acromioclavicular joint, initial encounter (principal); V18.0XXA Pedal cycle driver injured in noncollision transport accident in nontraffic accident, initial encounter; Y92.410 Unspecified street and highway as the place of occurrence of the external cause
CPT/HCPCS: J1885

== ENCOUNTER 2018-01-07 14:58 | Inpatient (IN) | payer OTHER ==
[2018-01-07 16:13] LABS: HEMATOCRIT 45.9 % (42.0-52.0); MEAN CORPUSCULAR HEMOGLOBIN 29.2 pg (27.0-33.0); MEAN CORPUSCULAR HGB CONC 34.9 g/dl (32.0-36.5); MEAN CORPUSCULAR VOLUME 83.8 fl (80.0-96.0); PLATELET COUNT, AUTOMATED 250 10^3/uL (150-450); RED BLOOD COUNT 5.48 10^6/uL (4.30-6.10); WHITE BLOOD COUNT 7.5 10^3/uL (4.0-10.0)
[2018-01-07 16:45] LABS: ALBUMIN 4.6 GM/DL (3.2-5.2); ALBUMIN/GLOBULIN RATIO 1.24 (1.00-1.93); ALKALINE PHOSPHATASE 107 U/L (45-117); ALT/SGPT 44 U/L (12-78); AMPHETAMINES LEVEL URINE POSITIVE (NEGATIVE); ANION GAP 8 MEQ/L (8-16); AST/SGOT 55 U/L (7-37); BARBITURATES URINE NEGATIVE (NEGATIVE); BENZODIAZEPINES URINE POSITIVE (NEGATIVE); BILIRUBIN,DIRECT 0.2 MG/DL (0.0-0.2); BILIRUBIN,TOTAL 0.9 MG/DL (0.2-1.0); BLOOD UREA NITROGEN 16 MG/DL (7-18); CALCIUM LEVEL 9.9 MG/DL (8.5-10.1); CANNABINOIDS URINE POSITIVE (NEGATIVE); CARBON DIOXIDE LEVEL 30 MEQ/L (21-32); CHLORIDE LEVEL 99 MEQ/L (98-107); COCAINE METABOLITE URINE NEGATIVE (NEGATIVE); CREATININE FOR GFR 0.84 MG/DL (0.70-1.30); GLOMERULAR FILTRATION RATE > 60.0 (>60); GLUCOSE, FASTING 199 MG/DL (70-100); METHADONE URINE NEGATIVE (NEGATIVE); OPIATES URINE NEGATIVE (NEGATIVE); PHENCYCLIDINE URINE NEGATIVE (NEGATIVE); POTASSIUM SERUM 4.8 MEQ/L (3.5-5.1); SALICYLATE LEVEL 2.1 MG/DL (5.0-30.0); SODIUM LEVEL 137 MEQ/L (136-145); TOTAL PROTEIN 8.3 GM/DL (6.4-8.2)
[2018-01-07 16:46] LABS: ACETAMINOPHEN LEVEL < 2.0 UG/ML (10.0-30.0); ETHYL ALCOHOL (ETHANOL) < 0.003 % (0.000-0.010)
[2018-01-07] MEDS ORDERED: MOM 30ML SUSPENSION UDC PO (18:30)
[2018-01-07] MEDS ORDERED: MAALOX 30 ML SUSP *UDC PO (18:30)
[2018-01-07] MEDS: ACETAMINOPHEN TAB 650MG DOSE (2X325MG) PO (20:04)
[2018-01-07] MEDS ORDERED: GLUCOSE 4 GM CHEW TABLET PO (21:00)
[2018-01-07] MEDS ORDERED: DEXTROSE 50% 50 ML SYRINGE IV (21:00)
[2018-01-07] MEDS ORDERED: GLUCAGON FOR INJ 1 MG VIAL (J1610) SC (21:00)
[2018-01-07 21:29] LABS: BEDSIDE GLUCOSE 512 MG/DL (70-105)
[2018-01-07] MEDS: traZODone 50 MG TAB PO (21:36)
[2018-01-07] MEDS: HumaLOG INSULIN (NovoLOG) PER UNIT SC (21:37)
[2018-01-07 22:22] LABS: BEDSIDE GLUCOSE CONFIRMATION 453 MG/DL (LESS THAN 200)
[2018-01-08] MEDS ORDERED: ANALGESIC BALM CRM 120 GM TOP (02:45)
[2018-01-08 06:10] LABS: BEDSIDE GLUCOSE 181 MG/DL (70-105)
[2018-01-08 06:10] LABS: BEDSIDE GLUCOSE 76 MG/DL (70-105)
[2018-01-08] MEDS: ANALGESIC BALM CRM 120 GM TOP ×2 (06:11→21:27)
[2018-01-08] MEDS: HumaLOG INSULIN (NovoLOG) PER UNIT SC ×4 (06:39→21:25)
[2018-01-08] MEDS: NICOTINE 21MG/24HR 1 EA TRANSDERMAL TD (09:15)
[2018-01-08] MEDS: ACETAMINOPHEN TAB 650MG DOSE (2X325MG) PO (10:04)
[2018-01-08 11:21] LABS: BEDSIDE GLUCOSE 351 MG/DL (70-105)
[2018-01-08] MEDS: BUPRENORPHINE/NALOXONE 8-2MG SUBLINGUAL TABLET(SUBOXONE) SL (14:38)
[2018-01-08 17:32] LABS: BEDSIDE GLUCOSE 250 MG/DL (70-105)
[2018-01-08 21:23] LABS: BEDSIDE GLUCOSE 289 MG/DL (70-105)
[2018-01-08] MEDS: traZODone 50 MG TAB PO (21:26)
[2018-01-09 06:26] LABS: BEDSIDE GLUCOSE 304 MG/DL (70-105)
[2018-01-09] MEDS: HumaLOG INSULIN (NovoLOG) PER UNIT SC ×4 (06:37→21:00)
[2018-01-09 07:53] LABS: ALBUMIN 3.8 GM/DL (3.2-5.2); ALBUMIN/GLOBULIN RATIO 1.19 (1.00-1.93); ALKALINE PHOSPHATASE 86 U/L (45-117); ALT/SGPT 39 U/L (12-78); ANION GAP 6 MEQ/L (8-16); AST/SGOT 37 U/L (7-37); BILIRUBIN,TOTAL 0.5 MG/DL (0.2-1.0); BLOOD UREA NITROGEN 17 MG/DL (7-18); CALCIUM LEVEL 9.4 MG/DL (8.5-10.1); CARBON DIOXIDE LEVEL 29 MEQ/L (21-32); CHLORIDE LEVEL 104 MEQ/L (98-107); CREATININE FOR GFR 0.86 MG/DL (0.70-1.30); GLOMERULAR FILTRATION RATE > 60.0 (>60); GLUCOSE, FASTING 243 MG/DL (70-100); POTASSIUM SERUM 5.3 MEQ/L (3.5-5.1); SODIUM LEVEL 139 MEQ/L (136-145)
[2018-01-09] MEDS: BUPRENORPHINE/NALOXONE 8-2MG SUBLINGUAL TABLET(SUBOXONE) SL (08:44)
[2018-01-09] MEDS: NICOTINE 21MG/24HR 1 EA TRANSDERMAL TD (08:44)
[2018-01-09] MEDS: ACETAMINOPHEN TAB 650MG DOSE (2X325MG) PO (08:54)
[2018-01-09] MEDS: LIDOCAINE 5% (LIDODERM) PATCH TD (09:16)
[2018-01-09] MEDS: IBUPROFEN 600 MG TAB PO ×2 (10:14→22:13)
[2018-01-09 11:30] LABS: POTASSIUM SERUM 5.6 MEQ/L (3.5-5.1)
[2018-01-09 11:51] LABS: ESTIMATED AVERAGE GLUCOSE 246 MG/DL (60-110); HEMOGLOBIN A1c 10.2 %
[2018-01-09 12:03] LABS: BEDSIDE GLUCOSE 350 MG/DL (70-105)
[2018-01-09 16:54] LABS: BEDSIDE GLUCOSE 273 MG/DL (70-105)
[2018-01-09] MEDS: **NOTE PATIENT COMMENT** MISC XX (21:00)
[2018-01-09 22:07] LABS: BEDSIDE GLUCOSE 235 MG/DL (70-105)
[2018-01-09] MEDS: [UNRECOGNIZED DRUG - OTHER] SC (22:09)
[2018-01-09] MEDS: traZODone 50 MG TAB PO (22:13)
[2018-01-10 06:32] LABS: BEDSIDE GLUCOSE 255 MG/DL (70-105)
[2018-01-10] MEDS: HumaLOG INSULIN (NovoLOG) PER UNIT SC (06:37)
[2018-01-10] MEDS: IBUPROFEN 600 MG TAB PO (08:07)
[2018-01-10] MEDS: BUPRENORPHINE/NALOXONE 8-2MG SUBLINGUAL TABLET(SUBOXONE) SL (08:07)
[2018-01-10] MEDS: LIDOCAINE 5% (LIDODERM) PATCH TD (08:07)
[2018-01-10] MEDS: CitaloPRAM (CeleXA) 20 MG TAB PO (08:07)
[2018-01-10] MEDS: NICOTINE 21MG/24HR 1 EA TRANSDERMAL TD (08:08)
== END 2018-01-10 11:50 | disposition home or self-care (01) | DRG 751 ==
LOC: M PSY 01-09 13:37 → M ED 14:58 → M ED INP 18:29 → M PSY 19:40
DX: F32.1 Major depressive disorder, single episode, moderate (principal); E87.5 Hyperkalemia; R45.851 Suicidal ideations; R45.850 Homicidal ideations; E11.9 Type 2 diabetes mellitus without complications; F17.210 Nicotine dependence, cigarettes, uncomplicated; R94.5 Abnormal results of liver function studies; M25.512 Pain in left shoulder; Z79.4 Long term (current) use of insulin; Z79.899 Other long term (current) drug therapy

== ENCOUNTER 2018-04-10 17:13 | Emergency (ER) | payer OTHER ==
[~2018-04-10] VITALS: Ht 177.8 cm; Wt 61.4 kg
[~2018-04-10 17:13] MED LIST changes: +ADVOMIS4 XX; +BUPR1SUB5 SL; +CELE20TA PO; +CLEO300C2 PO; +D-CA1KIT XX; +NICO21PAT TD; +SUBO12MI SL; +SUBO8MIS; +TRAZO50TA PO; +[UNRECOGNIZED DRUG - CODE]
[2018-04-10 17:14] VITALS: BP 138/81
[2018-04-10] MEDS ORDERED: KETOROLAC 30 MG/ML VIAL (J1885) IV ONE (18:15)
[2018-04-10] MEDS ORDERED: NS 1,000 ML IV ONE (18:15)
[2018-04-10 18:28] LABS: HEMATOCRIT 43.8 % (42.0-52.0); HEMOGLOBIN 15.1 g/dl (13.5-17.5); MEAN CORPUSCULAR HEMOGLOBIN 29.6 pg (27.0-33.0); MEAN CORPUSCULAR HGB CONC 34.5 g/dl (32.0-36.5); MEAN CORPUSCULAR VOLUME 85.9 fl (80.0-96.0); PLATELET COUNT, AUTOMATED 189 10^3/uL (150-450); WHITE BLOOD COUNT 10.1 10^3/uL (4.0-10.0)
[2018-04-10 18:30] LABS: VENOUS BASE EXCESS 1.8 (-2.0-2.0); VENOUS HCO3 31.8 MEQ/L (23.0-27.0); VENOUS O2 SATURATION 55.2 % (60.0-80.0); VENOUS PARTIAL PRESSURE CO2 74.5 mmHg (38.0-50.0); VENOUS PARTIAL PRESSURE O2 31.2 mmHg (30.0-50.0); VENOUS PH 7.248 UNITS (7.330-7.430); VENOUS STANDARD HCO3 24.9 MEQ/L; VENOUS TOTAL CO2 34.1 MEQ/L (24.0-28.0)
[2018-04-10 18:49] LABS: ERYTHROCYTE SEDIMENTATION RATE 10 mm/hr (0-15)
[2018-04-10 18:56] LABS: HEMOGLOBIN A1c 12.9 %
[2018-04-10] MEDS ORDERED: BUPRENORPHINE/NALOXONE 8-2MG SUBLINGUAL TABLET(SUBOXONE) SL ONE (19:00)
[2018-04-10 19:01] LABS: BLOOD UREA NITROGEN 19 MG/DL (7-18); CALCIUM LEVEL 8.9 MG/DL (8.5-10.1); CARBON DIOXIDE LEVEL 32 MEQ/L (21-32); CHLORIDE LEVEL 102 MEQ/L (98-107); CREATININE FOR GFR 0.83 MG/DL (0.70-1.30); GLOMERULAR FILTRATION RATE > 60.0 (>60); GLUCOSE, FASTING 149 MG/DL (70-100); SODIUM LEVEL 139 MEQ/L (136-145); URIC ACID 3.2 MG/DL (3.5-7.2)
== END 2018-04-10 20:38 | disposition left against medical advice (07) ==
LOC: M ED 17:13
DX: L03.115 Cellulitis of right lower limb (principal); E11.9 Type 2 diabetes mellitus without complications; F43.10 Post-traumatic stress disorder, unspecified; F19.10 Other psychoactive substance abuse, uncomplicated; B19.20 Unspecified viral hepatitis C without hepatic coma; F91.8 Other conduct disorders; Z79.4 Long term (current) use of insulin; Z79.891 Long term (current) use of opiate analgesic
CPT/HCPCS: 80048; 82803; 83036; 83605; 84550; 85027; 85652; 86140; 87040; 96374; 99283; J1885

== ENCOUNTER 2018-07-27 01:09 | Emergency (ER) | payer OTHER ==
[~2018-07-27] VITALS: Ht 175.3 cm; Wt 61.4 kg
[~2018-07-27 01:09] MED LIST changes: -BUPR15TAXL PO; +BUPR1TAB43 PO; -GLIM2TA PO; +GLIM2TAB29 PO; +TRAZ-160
[2018-07-27 01:10] VITALS: BP 157/90
[2018-07-27] MEDS ORDERED: BASA100I SC (01:18)
== END 2018-07-27 03:11 | disposition left against medical advice (07) ==
LOC: M ED 01:09
DX: Z53.29 Procedure and treatment not carried out because of patient's decision for other reasons (principal)

== ENCOUNTER 2018-10-29 14:48 | Emergency (ER) | payer OTHER ==
[~2018-10-29] VITALS: Ht 172.7 cm; Wt 63.6 kg
[~2018-10-29 14:48] MED LIST changes: +DOXY100C37 PO; +IBUP80TA PO; -TRAZ-160; +TRAZ-252; +TRAZ1TAB10 PO; -TRAZO50TA PO
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
[2018-10-29] MEDS ORDERED: ADME100I2 SC (16:12)
[2018-10-29] MEDS ORDERED: KETOROLAC 60 MG/2 ML VIAL (J1885) IM ONE (16:45)
[2018-10-29] MEDS ORDERED: HumuLIN R (REGULAR) INSULIN (NovoLIN R) **100U/ML** PER UNIT SC ONE (16:45)
[2018-10-29 17:40] VITALS: BP 128/74
== END 2018-10-29 17:49 | disposition home or self-care (01) ==
LOC: M ED 14:48
DX: S43.51XA Sprain of right acromioclavicular joint, initial encounter (principal); V18.0XXA Pedal cycle driver injured in noncollision transport accident in nontraffic accident, initial encounter; Y92.410 Unspecified street and highway as the place of occurrence of the external cause; E11.65 Type 2 diabetes mellitus with hyperglycemia; Z91.11 Patient's noncompliance with dietary regimen; Z79.4 Long term (current) use of insulin; F17.210 Nicotine dependence, cigarettes, uncomplicated
CPT/HCPCS: 73030; 96372; 99283; J1885

== ENCOUNTER 2018-11-19 17:19 | Inpatient (IN) | payer MEDICAID, OTHER, SELFPAY ==
[~2018-11-19] VITALS: Ht 172.7 cm; Wt 60.5 kg
[~2018-11-19 17:19] MED LIST changes: +ADME100I2 SC
[2018-11-19] MEDS ORDERED: NS 1,000 ML IV ONE ×2 (18:00)
[2018-11-19 18:27] LABS: ABG BASE EXCESS -1.3 (-2.0-2.0); ABG HCO3 25.2 MEQ/L (22.0-26.0); ABG O2 SATURATION 74.7 % (95.0-99.0); ABG STANDARD HCO3 22.9 MEQ/L (22.0-26.0); ABG TOTAL CO2 26.7 MEQ/L (22.0-29.0); ABG pH (ARTERIAL) 7.329 UNITS (7.350-7.450)
[2018-11-19 18:29] LABS: BASO % 0.5 % (0.0-1.0); EOS % 1.1 % (0.0-3.0); HEMATOCRIT 37.8 % (42.0-52.0); LYMPH # 0.8 10^3/uL (1.5-4.5); LYMPH % 21.4 % (24.0-44.0); MEAN CORPUSCULAR HEMOGLOBIN 28.7 pg (27.0-33.0); MEAN CORPUSCULAR HGB CONC 34.4 g/dl (32.0-36.5); MEAN CORPUSCULAR VOLUME 83.4 fl (80.0-96.0); MONO # 0.3 10^3/uL (0.0-0.8); MONO % 7.1 % (0.0-5.0); NEUTROPHILS # 2.7 10^3/uL (1.8-7.7); NEUTROPHILS % 69.9 % (36.0-66.0); PLATELET COUNT, AUTOMATED 219 10^3/uL (150-450); RED BLOOD COUNT 4.53 10^6/uL (4.30-6.10); WHITE BLOOD COUNT 3.8 10^3/uL (4.0-10.0)
[2018-11-19 18:29] LABS: ABG PARTIAL PRESSURE O2 39.7 mmHg (75.0-100.0)
[2018-11-19 18:51] LABS: ACETONE/KETONE 4.22 MG/DL (<2.81); ALT/SGPT 24 U/L (12-78); BILIRUBIN,DIRECT < 0.1 MG/DL (0.0-0.2); BILIRUBIN,TOTAL 0.2 MG/DL (0.2-1.0); BLOOD UREA NITROGEN 17 MG/DL (7-18); CALCIUM LEVEL 8.1 MG/DL (8.5-10.1); CARBON DIOXIDE LEVEL 26 MEQ/L (21-32); CHLORIDE LEVEL 94 MEQ/L (98-107); CK-MB VALUE MASS < 1.0 NG/ML (<3.6); CPK CREATINE PHOSPHOKINASE 51 U/L (39-308); CREATININE FOR GFR 0.92 MG/DL (0.70-1.30); GLOMERULAR FILTRATION RATE > 60.0 (>60); GLUCOSE, FASTING 822 MG/DL (70-100); LIPASE 121 U/L (73-393); MAGNESIUM LEVEL 1.9 MG/DL (1.8-2.4); MB/CK RELATIVE INDEX 1.96 (< OR =4); PHOSPHORUS LEVEL 3.8 MG/DL (2.5-4.9); POTASSIUM SERUM 4.8 MEQ/L (3.5-5.1); SODIUM LEVEL 126 MEQ/L (136-145); TOTAL PROTEIN 5.9 GM/DL (6.4-8.2); TROPONIN I < 0.02 NG/ML (< 0.10)
[2018-11-19] MEDS ORDERED: IBUP80TA PO (18:58)
[2018-11-19 18:59] LABS: HEMOGLOBIN A1c 10.4 %
[2018-11-19 19:19] LABS: OSMOLALITY SERUM 313 MOSM/KG (275-295)
[2018-11-19] MEDS ORDERED: POTASSIUM CHLORIDE 10 MEQ SR TABLET PO ONE (19:30)
[2018-11-19] MEDS ORDERED: HumuLIN R (REGULAR) INSULIN (NovoLIN R) **100U/ML** PER UNIT IV ONE (19:30)
--- NOTE | 2018-11-19 20:18 | ECGEPIP ---
[facility] - ED Test Date: 2018-11-19 Pat Name: LEXII JIMENEZ Department: Room: - Gender: Male [employer] Consultant: morris : 1980 Requested By: Sonal Perez Order Number: [id number] Reading MD: Sonal Perez Measurements Intervals [place] Rate: 70 P: 84 KS: 153 QRS: 77 QRSD: 94 T: 71 QT: 391 QTc: 422 Interpretive Statements SINUS RHYTHM POSSIBLE LEFT ATRIAL ENLARGEMENT NONSPECIFIC ST T WAVE CHANGES CW 01/08/18 RATE DECREASED [facility] Electronically Signed on 11-19-2018 20:17:59 EDT by Sonal Perez
[2018-11-19] MEDS ORDERED: DEXTROSE 50% 50 ML SYRINGE IV PRN (22:15)
[2018-11-19] MEDS ORDERED: GLUCOSE 4 GM CHEW TABLET PO PRN (22:15)
[2018-11-19] MEDS ORDERED: GLUCAGON FOR INJ 1 MG VIAL (J1610) SC PRN (22:15)
[2018-11-19] MEDS ORDERED: SODIUM CHLORIDE 0.9% 1000ML IV ONE ×2 (22:30→23:30)
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
[2018-11-19] MEDS: HumaLOG INSULIN (NovoLOG) PER UNIT SC SCH (22:58)
[2018-11-19] MEDS: LEVEMIR (INSULIN DETEMIR) 1 UNITS/0.01ML SC SCH (22:59)
[2018-11-19] MEDS: BUPRENORPHINE/NALOXONE 8-2MG SUBLINGUAL TABLET(SUBOXONE) SL SCH (22:59)
[2018-11-20 00:10] VITALS: BP 104/70
[2018-11-20] MEDS: IBUPROFEN 800 MG TAB PO PRN ×2 (00:31→09:25)
[2018-11-20 06:00] VITALS: BP 100/64
[2018-11-20 06:07] LABS: BASO % 0.6 % (0.0-1.0); EOS # 0.1 10^3/uL (0.0-0.50); EOS % 2.8 % (0.0-3.0); HEMATOCRIT 36.5 % (42.0-52.0); HEMOGLOBIN 12.6 g/dl (13.5-17.5); LYMPH # 1.4 10^3/uL (1.5-4.5); LYMPH % 40.5 % (24.0-44.0); MEAN CORPUSCULAR HEMOGLOBIN 28.8 pg (27.0-33.0); MEAN CORPUSCULAR HGB CONC 34.5 g/dl (32.0-36.5); MEAN CORPUSCULAR VOLUME 83.3 fl (80.0-96.0); MONO # 0.4 10^3/uL (0.0-0.8); MONO % 10.3 % (0.0-5.0); NEUTROPHILS # 1.6 10^3/uL (1.8-7.7); NEUTROPHILS % 45.5 % (36.0-66.0); PLATELET COUNT, AUTOMATED 195 10^3/uL (150-450); RED BLOOD COUNT 4.38 10^6/uL (4.30-6.10); WHITE BLOOD COUNT 3.5 10^3/uL (4.0-10.0)
[2018-11-20 06:31] LABS: BLOOD UREA NITROGEN 10 MG/DL (7-18); CALCIUM LEVEL 7.9 MG/DL (8.5-10.1); CARBON DIOXIDE LEVEL 25 MEQ/L (21-32); CHLORIDE LEVEL 110 MEQ/L (98-107); CREATININE FOR GFR 0.51 MG/DL (0.70-1.30); GLOMERULAR FILTRATION RATE > 60.0 (>60); GLUCOSE, FASTING 210 MG/DL (70-100); POTASSIUM SERUM 4.1 MEQ/L (3.5-5.1); SODIUM LEVEL 140 MEQ/L (136-145)
--- NOTE | 2018-11-20 07:20 | REP ---
REASON: BKA. The technique utilized in obtaining the radiograph has magnified the cardiac silhouette and accentuated the interstitial markings. FINDINGS: The superior mediastinal structures are midline. The cardiac silhouette is unremarkable in size, shape, and position. The diaphragmatic surfaces of the lungs are regular, and the costophrenic angles are clear. The pulmonary perez are clear. The imaged osseous structures are intact. IMPRESSION: There is no acute cardiopulmonary disease. Electronically Signed by Rojas Montilla DO 11/20/2018 10:08 A
[2018-11-20] MEDS: HumaLOG INSULIN (NovoLOG) PER UNIT SC SCH ×4 (09:17→21:00)
[2018-11-20] MEDS: LEVEMIR (INSULIN DETEMIR) 1 UNITS/0.01ML SC SCH ×2 (09:18→21:00)
[2018-11-20] MEDS: ENOXAPARIN 40 MG/0.4 ML SYRINGE (J1650) SC SCH (09:19)
[2018-11-20 14:00] VITALS: BP 118/80
--- NOTE | 2018-11-20 14:31 | IPNPDOC ---
Subjective Date Seen The patient was seen on 11/20/18. Subjective Chief Complaint/HPI Patient seen and examined at the bedside. No acute overnight events noted. Does not endorse any acute complaints at this time. Objective Physical Examination General Exam: Positive: Alert, Cooperative, No Acute Distress Eye Exam: Negative: Sclera icteric ENT Exam: Positive: Atraumatic, Mucous membr. moist/pink Neck Exam: Negative: JVD Chest Exam: Positive: Clear to auscultation, Normal air movement Heart Exam: Positive: Rate Normal, Normal S1, Normal S2 Abdomen Exam: Positive: Normal bowel sounds, Soft; Negative: Tenderness Extremity Exam: Negative: Tenderness, Swelling Neuro Exam: Positive: Normal Gait, Normal Speech Psych Exam: Positive: Memory Intact, Oriented x 3 Assessment /Plan Plan/VTE VTE Prophylaxis Ordered?: Yes Plan Hyperosmolar hyperglycemia, resolved Due to non compliance with insulin Continue regimen as ordered PFS consult to help in obtaining meds/insurance Hyponatremia 2/2 Above, resolved Poly substance abuse including IV drug abuse Currently on Suboxone will Continue Hepatitis C treated DVT Prophylaxis Lovenox SC Disposition-pending continued clinical improvement, and pending approval of medication/insurance. VS, I&O, 24H, [facility] Vital Signs/I&O Vital Signs Date Time Temp Pulse Resp B/P (MAP) Pulse Ox O2 Delivery O2 Flow Rate FiO2 11/20/18 14:00 97.8 76 16 118/80 (93) 99 11/19/18 23:30 Room Air I&O- Last 24 Hours up to 6 AM 11/20/18 05:59 Intake Total 2150 ml Output Total 2550 ml Balance -400 ml Laboratory Data 24H LABS Laboratory Tests 2 11/19/18 17:43: Immature Granulocyte % (Auto) 0.0, White Blood Count 3.8L, Red Blood Count 4.53, Hemoglobin 13.0L, Hematocrit 37.8L, Mean Corpuscular Volume 83.4, Mean Corpuscular Hemoglobin 28.7, Mean Corpuscular Hemoglobin Concent 34.4, Red Cell Distribution Width 12.2, Platelet Count 219, Neutrophils (%) (Auto) 69.9H, Lymphocytes (%) (Auto) 21.4L, Monocytes (%) (Auto) 7.1H, Eosinophils (%) (Auto) 1.1, Basophils (%) (Auto) 0.5, Neutrophils # (Auto) 2.7, Lymphocytes # (Auto) 0.8L, Monocytes # (Auto) 0.3, Eosinophils # (Auto) 0.0, Basophils # (Auto) 0.0, Nucleated Red Blood Cells % (auto) 0.0, Urine Color STRAW, Urine Appearance CLEAR, Urine pH 6.0, Urine Specific [place] 1.023, Urine Protein NEGATIVE, Urine Glucose (UA) 3+H, Urine Ketones NEGATIVE, Urine Blood NEGATIVE, Urine Nitrite NEGATIVE, Urine Bilirubin NEGATIVE, Urine Urobilinogen 0.2, Urine Leukocyte Esterase NEGATIVE, Urine WBC (Auto) 0, Urine RBC (Auto) 1, Urine Hyaline Casts (Auto) 0, Urine Bacteria (Auto) NEGATIVE, Urine Squamous Epithelial Cells 0, Urine Sperm (Auto) , Anion Gap 6L, Glomerular Filtration Rate > 60.0, Estimated Mean Plasma Glucose 252H, Hemoglobin A1c 10.4, Osmolality 313H, Calcium Level 8.1L, Phosphorus Level 3.8, Magnesium Level 1.9, Aspartate Amino Transf (AST/SGOT) 20, Alanine Aminotransferase (ALT/SGPT) 24, Alkaline Phosphatase 76, Total Bilirubin 0.2, Direct Bilirubin < 0.1, Total Creatine Kinase 51, Creatine Kinase MB < 1.0, Creatine Kinase MB Relative Index 1.96, Troponin I < 0.02, Total Protein 5.9L, Albumin 3.0L, Albumin/Globulin Ratio 1.03, Lipase 121, B-Hydroxybutyrate 4.22H 11/19/18 17:48: Bedside Glucose (Misc Panel) > 600*H 11/19/18 18:17: Blood Gas Bicarbonate Standard 22.9, Arterial Blood pH 7.329L, Arterial Blood Partial Pressure CO2 49.0H, Arterial Blood Partial Pressure O2 39.7*L, Arterial Blood Total CO2 26.7, Arterial Blood HCO3 25.2, Arterial Blood Base Excess -1.3, Arterial Blood Oxygen Saturation 74.7L 11/19/18 18:21: POC Lactate (Misc Panel) 1.04 11/19/18 18:47: Bedside Glucose (Misc Panel) > 600*H 11/19/18 19:38: Bedside Glucose (Misc Panel) 575*H 11/19/18 20:37: Bedside Glucose (Misc Panel) 273H 11/19/18 22:42: Bedside Glucose (Misc Panel) 190H 11/20/18 05:41: Immature Granulocyte % (Auto) 0.3, White Blood Count 3.5L, Red Blood Count 4.38, Hemoglobin 12.6L, Hematocrit 36.5L, Mean Corpuscular Volume 83.3, Mean Corpuscular Hemoglobin 28.8, Mean Corpuscular Hemoglobin Concent 34.5, Red Cell Distribution Width 12.4, Platelet Count 195, Neutrophils (%) (Auto) 45.5, Lymphocytes (%) (Auto) 40.5, Monocytes (%) (Auto) 10.3H, Eosinophils (%) (Auto) 2.8, Basophils (%) (Auto) 0.6, Neutrophils # (Auto) 1.6L, Lymphocytes # (Auto) 1.4L, Monocytes # (Auto) 0.4, Eosinophils # (Auto) 0.1, Basophils # (Auto) 0.0, Nucleated Red Blood Cells % (auto) 0.0, Anion Gap 5L, Glomerular Filtration Rate > 60.0, Blood Urea Nitrogen 10, Creatinine 0.51L, Sodium Level 140#, Potassium Level 4.1, Chloride Level 110H, Carbon Dioxide Level 25, Calcium Level 7.9L 11/20/18 11:37: Bedside Glucose (Misc Panel) 166H CBC/BMP Laboratory Tests 11/19/18 17:43 Red Blood Count 4.53, Mean Corpuscular Volume 83.4, Mean Corpuscular Hemoglobin 28.7, Mean Corpuscular Hemoglobin Concent 34.4, Red Cell Distribution Width 12.2, Neutrophils (%) (Auto) 69.9 H, Lymphocytes (%) (Auto) 21.4 L, Monocytes (%) (Auto) 7.1 H, Eosinophils (%) (Auto) 1.1, Basophils (%) (Auto) 0.5, Neutrop hils # (Auto) 2.7, Lymphocytes # (Auto) 0.8 L, Monocytes # (Auto) 0.3, Eosinophils # (Auto) 0.0, Basophils # (Auto) 0.0 11/20/18 05:41 Red Blood Count 4.38, Mean Corpuscular Volume 83.3, Mean Corpuscular Hemoglobin 28.8, Mean Corpuscular Hemoglobin Concent 34.5, Red Cell Distribution Width 12.4, Neutrophils (%) (Auto) 45.5, Lymphocytes (%) (Auto) 40.5, Monocytes (%) (Auto) 10.3 H, Eosinophils (%) (Auto) 2.8, Basophils (%) (Auto) 0.6, Neutrophils # (Auto) 1.6 L, Lymphocytes # (Auto) 1.4 L, Monocytes # (Auto) 0.4, Eosinophils # (Auto) 0.1, Basophils # (Auto) 0.0, Calcium Level 7.9 L Microbiology Microbiology 11/19/18 Blood Culture, Received Pending 11/19/18 Blood Culture, Received Pending TJ NEAL MD Nov 20, 2018 14:31
[2018-11-20] MEDS: BUPRENORPHINE/NALOXONE 8-2MG SUBLINGUAL TABLET(SUBOXONE) SL SCH (21:00)
[2018-11-20 22:00] VITALS: BP 112/74
[2018-11-21 06:00] VITALS: BP 102/63
[2018-11-21 06:17] LABS: BASO % 0.3 % (0.0-1.0); EOS # 0.1 10^3/uL (0.0-0.50); EOS % 2.6 % (0.0-3.0); HEMOGLOBIN 13.7 g/dl (13.5-17.5); LYMPH # 1.5 10^3/uL (1.5-4.5); LYMPH % 43.3 % (24.0-44.0); MEAN CORPUSCULAR HEMOGLOBIN 28.5 pg (27.0-33.0); MEAN CORPUSCULAR HGB CONC 34.3 g/dl (32.0-36.5); MEAN CORPUSCULAR VOLUME 83.3 fl (80.0-96.0); MONO # 0.4 10^3/uL (0.0-0.8); MONO % 10.5 % (0.0-5.0); NEUTROPHILS # 1.5 10^3/uL (1.8-7.7); PLATELET COUNT, AUTOMATED 199 10^3/uL (150-450); WHITE BLOOD COUNT 3.4 10^3/uL (4.0-10.0)
[2018-11-21 06:34] LABS: BLOOD UREA NITROGEN 9 MG/DL (7-18); CREATININE FOR GFR 0.47 MG/DL (0.70-1.30); GLUCOSE, FASTING 111 MG/DL (70-100)
[2018-11-21 06:35] LABS: CALCIUM LEVEL 8.1 MG/DL (8.5-10.1); CARBON DIOXIDE LEVEL 25 MEQ/L (21-32); CHLORIDE LEVEL 111 MEQ/L (98-107); GLOMERULAR FILTRATION RATE > 60.0 (>60); POTASSIUM SERUM 3.6 MEQ/L (3.5-5.1); SODIUM LEVEL 141 MEQ/L (136-145)
[2018-11-21] MEDS: LEVEMIR (INSULIN DETEMIR) 1 UNITS/0.01ML SC SCH (08:44)
[2018-11-21] MEDS: ENOXAPARIN 40 MG/0.4 ML SYRINGE (J1650) SC SCH (08:44)
[2018-11-21] MEDS: HumaLOG INSULIN (NovoLOG) PER UNIT SC SCH ×2 (08:45→12:29)
--- NOTE | 2018-11-21 17:36 | DS.PDOC ---
Discharge Summary General Date of Admission Nov 19, 2018 at 22:08 Date of Discharge 11/21/18 Discharge Summary PROCEDURES PERFORMED DURING STAY: None. ADMITTING/DISCHARGE DIAGNOSES: Hyperosmolar hyperglycemia Due to non compliance with insulin Hyponatremia 2/2 Above, resolved Poly substance abuse including IV drug abuse Hx of Hepatitis C COMPLICATIONS/CHIEF COMPLAINT: Hyperglycemia. HISTORY OF PRESENT ILLNESS: . 38 year old male with PMH of Diabetes mellitus type 1, History of hepatitis C treated, Bipolar disorder, Post traumatic stress disorder, Anxiety, History of polysubstance abuse and intravenous (IV) drug use on subaxone, Irritable bowel syndrome ran out of his insulin 3 days prior to his presentation to the ER. He went to hand picker his insulin from the pharmacy on Monday and found out that he has lost his insurance. Then he went to see his PMD to straighten out his insurance which he says he got straightened out and he went back to pharmacy to get his insulin but was told that it needed prior authorization. He went back home to lay down and was planning to follow up with the pharmacy the following day but he was feeling very weak, sleepy and dizzy . He could not get off of his couch so called the EMS. Ems found his sugars to be over 600 and was brought to the ED. In the ED his sugar was 822. He was admitted to the hospitalist service for hyperosmolar hyperglycemic syndrome. Hyperosmolar hyperglycemia, resolved Due to non compliance with insulin The patient's blood sugar levels were controlled on the regimen ordered in the hospital PFS help to obtain the patient's insurance and prior authorization, this has been confirmed with the patient's pharmacy Hyponatremia 2/2 Above, resolved Poly substance abuse including IV drug abuse Currently on Suboxone will Continue Hepatitis C treated DISCHARGE MEDICATIONS: Please see below. ALLERGIES: Please see below. PHYSICAL EXAMINATION ON DISCHARGE: VITAL SIGNS: Please see below. General Exam: Positive: Alert, Cooperative, No Acute Distress Eye Exam: Negative: Sclera icteric ENT Exam: Positive: Atraumatic, Mucous membr. moist/pink Neck Exam: Negative: JVD Chest Exam: Positive: Clear to auscultation, Normal air movement Heart Exam: Positive: Rate Normal, Normal S1, Normal S2 Abdomen Exam: Positive: Normal bowel sounds, Soft; Negative: Tenderness Extremity Exam: Negative: Tenderness, Swelling Neuro Exam: Positive: Normal Gait, Normal Speech Psych Exam: Positive: Memory Intact, Oriented x 3 LABORATORY DATA: Please see below. IMAGING: The technique utilized in obtaining the radiograph has magnified the cardiac silhouette and accentuated the interstitial markings. FINDINGS: The superior mediastinal structures are midline. The cardiac silhouette is unremarkable in size, shape, and position. The diaphragmatic surfaces of the lungs are regular, and the costophrenic angles are clear. The pulmonary perez are clear. The imaged osseous structures are intact. IMPRESSION: There is no acute cardiopulmonary disease. PROGNOSIS: Fair ACTIVITY: As tolerated. DIET: Carb consistent diet DISCHARGE PLAN: DISPOSITION: 01 Home, Self-Care. DISCHARGE INSTRUCTIONS: Follow-up with primary care physician within 7 days. Take insulin medications as prescribed. Return to the ER for any acute emergencies. DISCHARGE CONDITION: Stable. TIME SPENT ON DISCHARGE: Greater than 30 minutes. Vital Signs/I&Os Vital Signs Date Time Temp Pulse Resp B/P (MAP) Pulse Ox O2 Delivery O2 Flow Rate FiO2 11/21/18 06:00 98.0 56 18 102/63 (76) 99 11/19/18 23:30 Room Air I&O- Last 24 Hours up to 6 AM 11/21/18 06:00 Intake Total 1195 ml Output Total 980 ml Balance 215 ml Laboratory Data Labs 24H Laboratory Tests 2 11/20/18 20:38: Bedside Glucose (Misc Panel) 178H 11/21/18 05:28: Immature Granulocyte % (Auto) 0.3, White Blood Count 3.4L, Red Blood Count 4.80, Hemoglobin 13.7, Hematocrit 40.0L, Mean Corpuscular Volume 83.3, Mean Corpuscular Hemoglobin 28.5, Mean Corpuscular Hemoglobin Concent 34.3, Red Cell Distribution Width 12.7, Platelet Count 199, Neutrophils (%) (Auto) 43.0, Lymphocytes (%) (Auto) 43.3, Monocytes (%) (Auto) 10.5H, Eosinophils (%) (Auto) 2.6, Basophils (%) (Auto) 0.3, Neutrophils # (Auto) 1.5L, Lymphocytes # (Auto) 1.5, Monocytes # (Auto) 0.4, Eosinophils # (Auto) 0.1, Basophils # (Auto) 0.0, Nucleated Red Blood Cells % (auto) 0.0, Anion Gap 5L, Glomerular Filtration Rate > 60.0, Blood Urea Nitrogen 9, Creatinine 0.47L, Sodium Level 141, Potassium Level 3.6, Chloride Level 111H, Carbon Dioxide Level 25, Calcium Level 8.1L 11/21/18 11:32: Bedside Glucose (Misc Panel) 226H CBC/BMP Laboratory Tests 11/21/18 05:28 Red Blood Count 4.80, Mean Corpuscular Volume 83.3, Mean Corpuscular Hemoglobin 28.5, Mean Corpuscular Hemoglobin Concent 34.3, Red Cell Distribution Width 12.7, Neutrophils (%) (Auto) 43.0, Lymphocytes (%) (Auto) 43.3, Monocytes (%) (Auto) 10.5 H, Eosinophils (%) (Auto) 2.6, Basophils (%) (Auto) 0.3, Neutrophils # (Auto) 1.5 L, Lymphocytes # (Auto) 1.5, Monocytes # (Auto) 0.4, Eosinophils # (Auto) 0.1, Basophils # (Auto) 0.0, Calcium Level 8.1 L FSBS Laboratory Tests Test 11/20/18 20:38 11/21/18 11:32 Range/Units Bedside Glucose (Misc Panel) 178 226 70-105 MG/DL Microbiology Microbiology 11/19/18 Blood Culture - Preliminary, Resulted No growth after 24 hours . All specim... 11/19/18 Blood Culture - Preliminary, Resulted No growth after 24 hours . All specim... Discharge Medications Scheduled Buprenorphine HCl/Naloxone HCl (Suboxone 8 mg-2 mg Sl Film) 1 Mis Mis, 1 MIS SL QHS, (Reported) Insulin Glargine,Hum.rec.anlog (Basaglar Kwikpen U-100) 100 Unit/1 Ml Insuln.pen, 30 UNIT SC QHS, (Reported) Insulin Lispro (Admelog Solostar) 100 Unit/1 Ml Insuln.pen, 2-10 UNITS SC DAILY, (Reported) Scheduled PRN Ibuprofen (Ibuprofen) 800 Mg Tablet, 800 MG PO Q6H PRN for PAIN, (Reported) Allergies Coded Allergies: No Known Allergies (Verified , 01/07/18) TJ NEAL MD Nov 21, 2018 17:36
== END 2018-11-21 13:49 | disposition home or self-care (01) | DRG 420 ==
LOC: M ED 17:19 → M ED INP 22:08 → M MSPAV 11-20 00:05
PROVIDERS: ADMIT Internal Medicine Nephrology; ATTEND Internal Medicine
DX: E10.65 Type 1 diabetes mellitus with hyperglycemia (principal); E87.1 Hypo-osmolality and hyponatremia; B18.2 Chronic viral hepatitis C; Z79.4 Long term (current) use of insulin; Z91.14 Patient's other noncompliance with medication regimen; F31.9 Bipolar disorder, unspecified

== ENCOUNTER 2019-02-13 00:36 | Emergency (ER) | payer MEDICAID ==
[~2019-02-13] VITALS: Ht 172.7 cm; Wt 61.4 kg
[2019-02-13 00:37] VITALS: BP 142/95
[2019-02-13] MEDS ORDERED: BUPR150T5 PO (00:46)
[2019-02-13] MEDS ORDERED: ASPI-117 PO (00:46)
[2019-02-14] MEDS ORDERED: ECOT81TA5 PO (04:07)
[2019-02-14] MEDS ORDERED: NOVOINJ3 SC (04:07)
== END 2019-02-13 01:30 | disposition left against medical advice (07) ==
LOC: M ED 00:36
DX: Z53.21 Procedure and treatment not carried out due to patient leaving prior to being seen by health care provider (principal)

== ENCOUNTER 2019-02-14 02:39 | Inpatient (IN) | payer MEDICAID, OTHER ==
[~2019-02-14] VITALS: Ht 172.7 cm; Wt 61.6 kg
[2019-02-14] MEDS: VANCOMYCIN HCL 1,000 MG, VIAL MATE ADAPTER 1 EACH in D5W 250 ML IV SCH ×4 (01:30→23:20)
[~2019-02-14 02:39] MED LIST changes: +ASPI-117 PO; +BUPR150T5 PO
[2019-02-14] MEDS ORDERED: MORPHINE 10 MG/ML 1ML VIAL (J2270) IV ONE (03:15)
[2019-02-14] MEDS ORDERED: AMPICILLIN SOD/SULBACTAM SOD 3 GM in D5W MINI-BAG PLUS 100 ML IV ONE (03:15)
[2019-02-14] MEDS ORDERED: NS 1,000 ML IV ONE (03:45)
[2019-02-14] MEDS ORDERED: NOVOINJ3 SC (04:07)
[2019-02-14] MEDS ORDERED: ECOT81TA5 PO (04:07)
[2019-02-14 04:28] LABS: BLOOD UREA NITROGEN 12 MG/DL (7-18); CALCIUM LEVEL 8.8 MG/DL (8.5-10.1); CARBON DIOXIDE LEVEL 21 MEQ/L (21-32); CHLORIDE LEVEL 106 MEQ/L (98-107); CPK CREATINE PHOSPHOKINASE 131 U/L (39-308); CREATININE FOR GFR 0.64 MG/DL (0.70-1.30); GLOMERULAR FILTRATION RATE > 60.0 (>60); GLUCOSE, FASTING 135 MG/DL (70-100); POTASSIUM SERUM 4.4 MEQ/L (3.5-5.1); SODIUM LEVEL 133 MEQ/L (136-145)
[2019-02-14] MEDS ORDERED: KETOROLAC 30 MG/ML VIAL (J1885) IV ONE (05:15)
--- NOTE | 2019-02-14 05:19 | REPVR ---
PROCEDURE INFORMATION: Exam: US Duplex Right Upper Extremity Veins, Limited Exam date and time: 02/14/2019 5:12 AM Clinical history: 38 years old, male; Pain; Arm; Right; Additional info: Eval dvt TECHNIQUE: Imaging protocol: Real-time Duplex ultrasound of the Right Upper Extremity with 2-D talavera scale, color Doppler flow and spectral waveform analysis with image documentation. Limited exam focused on the right upper extremity veins. COMPARISON: No relevant prior studies available. FINDINGS: Right deep veins: Unremarkable. Axillary and brachial veins are patent throughout without thrombus. Normal Doppler waveforms. Normal compressibility and/or augmentation response. Visualized internal jugular and subclavian veins are patent. Right superficial veins: Thrombus is noted in the caudal aspect of the right cephalic vein toward the antecubital fossa. Soft tissues: Unremarkable. IMPRESSION: 1. Negative right upper extremity venous duplex exam without evidence of deep venous thrombosis. 2. Segmental thrombus is noted in the cephalic vein of the distal arm near the antecubital fossa. Electronically signed by: José Colindres On 02/14/2019 05:18:53 AM
[2019-02-14] MEDS ORDERED: VANCOMYCIN HCL 1,000 MG, VIAL MATE ADAPTER 1 EACH in D5W 250 ML IV ONE (06:15)
[2019-02-14 06:25] LABS: BASO % 0.2 % (0.0-1.0); EOS % 0.2 % (0.0-3.0); HEMOGLOBIN 12.5 g/dl (13.5-17.5); LYMPH # 1.4 10^3/uL (1.5-5.0); MEAN CORPUSCULAR HEMOGLOBIN 29.4 pg (27.0-33.0); MEAN CORPUSCULAR HGB CONC 33.8 g/dl (32.0-36.5); MEAN CORPUSCULAR VOLUME 87.1 fl (80.0-96.0); MONO # 0.9 10^3/uL (0.0-0.8); MONO % 7.6 % (0.0-5.0); NEUTROPHILS % 80.7 % (36.0-66.0); PLATELET COUNT, AUTOMATED 197 10^3/uL (150-450); RED BLOOD COUNT 4.25 10^6/uL (4.30-6.10); WHITE BLOOD COUNT 12.3 10^3/uL (4.0-10.0)
[2019-02-14 06:37] VITALS: BP 135/79
[2019-02-14] MEDS ORDERED: GLUCAGON FOR INJ 1 MG VIAL (J1610) SC PRN (08:00)
[2019-02-14] MEDS ORDERED: VANCOMYCIN HCL 500 MG in D5W MINI-BAG PLUS 100 ML IV ONE (08:00)
[2019-02-14] MEDS ORDERED: GLUCOSE 4 GM CHEW TABLET PO PRN (08:00)
[2019-02-14] MEDS ORDERED: DEXTROSE 50% 50 ML SYRINGE IV PRN (08:00)
--- NOTE | 2019-02-14 08:18 | PHACANCOPD ---
PHARMACY VANCOMYCIN DOSING Pt Demographics Demographics Patient Age:38 , Weight:61.600 , Gender: male Adjusted Body Weight Date: 02/14/19, Adjusted Body Weight: Kg Events Past 24 Hours Events Past 24 Hours: YES: Elevation in WBC Vancomycin Vancomycin Target Ranges: 10-20 mcg/ml Vancomycin Load Y/N: Yes Load Dose Date Time Vancomycin Load Dose: 1500 MG Date: 02/14/19 Time: 0700 Vancomycin Dose Date: 02/14/19. Current Vancomycin Dose: [1 GM IV Q8H] Intermittent Dosing?: No Labs Labs Item Value Date Time White Blood Count 12.3 10^3/uL H 02/14/19 0615 Micro Microbiology 02/14/19 Blood Culture, Received Pending Creatinine Clearance Date:02/14/19. Creatinine Clearance: . Assessment and Plan Maintaining Current Dose?: Yes Reason for dose change: No Dose Change Pharmacist Note Pharmacist Note Date: 02/14/19. Pharmacist note: Pharmacy consulted for vancomycin dosing for treatment of skin and soft tissue infection with a goal trough of 10-15 mcg/ml. Patient has no previous Vancomycin or MRSA history here at [facility]. We'll load the patient with 1500 mg and follow with 1 gm IV q8h. Pharmacy will continue to monitor and make adjustments as needed. [facility] Feb 14, 2019 08:18
[2019-02-14] MEDS: LEVEMIR (INSULIN DETEMIR) 1 UNITS/0.01ML SC SCH (09:00)
--- NOTE | 2019-02-14 09:53 | HPEPDOC ---
General Date of Admission Feb 14, 2019 at 05:40 Date of Service: Feb 14, 2019 Chief Complaint The patient is a 38-year-old male admitted with a reason for visit of Septic Thrombophlebitis Of Upper Extremity. History of Present Illness White male with past medical history of diabetes mellitus type 1, history of hepatitis C treated bipolar disorder, posttraumatic stress syndrome, anxiety, history of polysubstance abuse, IV drug abuse. Irritable bowel syndrome was admitted with the diagnosis of thrombophlebitis of Rt upper extremity. Patient had refused to see Dr. Snyder last night and this morning when I tried to interview him. Patient was uncooperative and wanted to go back to sleep without giving me the history, but he did let me examine his arm. History was obtained from patient's ED records and all his old records were reviewed. Home Medications Scheduled Aspirin (Ecotrin) 81 Mg Tablet.dr, 81 MG PO DAILY, (Reported) Buprenorphine HCl/Naloxone HCl (Suboxone 8 mg-2 mg Sl Film) 1 Mis Mis, 1 STRIP SL DAILY, (Reported) Bupropion Hcl (Bupropion HCl Sr) 150 Mg Tab.sr.12h, 150 MG PO DAILY, (Reported) Insulin Aspart (Novolog Flexpen) 100 Unit/1 Ml Insuln.pen, 1 DOSE SC AC, (Reported) PER SLIDING SCALE Insulin Glargine,Hum.rec.anlog (Basaglar Kwikpen U-100) 100 Unit/1 Ml Insuln.pen, 30 UNIT SC DAILY, (Reported) Allergies Coded Allergies: No Known Allergies (Verified , 02/14/19) Past Medical History Medical History Diabetes mellitus type 1, history of hepatitis C, bipolar disorder, posttraumatic stress syndrome, anxiety, polysubstance abuse, IV drug abuse, irritable bowel syndrome Surgical History Biceps tendon repair on the left side Family History Significant Family History: No pertinent family hx Social History Alcohol: Denies Drugs: other (marijuana, amphetamines) A-FIB/CHADSVASC A-FIB History Current/History of A-Fib/PAF?: No Review of Systems Constitutional: Reports: Other (, patient refused to answer the review of system questions and turned over to sleep) Physical Examination General Exam: Positive: Other (, uncooperative, agitated, hostile) Extremity Exam: Positive: Tenderness (visit to thrombophlebitis, and right forearm) Vital Signs Vital Signs Date Time Temp Pulse Resp B/P (MAP) Pulse Ox O2 Delivery O2 Flow Rate FiO2 02/14/19 06:37 98.1 92 18 135/79 (97) 98 Room Air Laboratory Data Labs 24H Laboratory Tests 2 02/14/19 03:56: Anion Gap 6L, Glomerular Filtration Rate > 60.0, Calcium Level 8.8, Total Creatine Kinase 131 02/14/19 06:15: Immature Granulocyte % (Auto) 0.3, Neutrophils (%) (Auto) 80.7H, Lymphocytes (%) (Auto) 11.0L, Monocytes (%) (Auto) 7.6H, Eosinophils (%) (Auto) 0.2, Basophils (%) (Auto) 0.2, Neutrophils # (Auto) 10.0H, Lymphocytes # (Auto) 1.4L, Monocytes # (Auto) 0.9H, Eosinophils # (Auto) 0.0, Basophils # (Auto) 0.0, Nucleated Red Blood Cells % (auto) 0.0 CBC/BMP Laboratory Tests 02/14/19 03:56 02/14/19 06:15 Microbiology Microbiology 02/14/19 Blood Culture, Received Pending Problems (1) Thrombophlebitis arm Status: Acute Problem Text: 38 years old white male with history of multiple medical problems including diabetes mellitus, hepatitis C, which was treated bipolar disorder, posttraumatic stress syndrome, anxiety disorder, history of IV methamphetamine abuse was admitted with the thrombophlebitis of right upper extremity secondary to IV drug abuse. Patient is not cooperative, Agitated and hostile and he alert male to examine his 1 extremity Admit to [facility] floor Carley is been started on IV vancomycin will continue the same CBC, CMP in a.m. Continue all home medication DVT prophylaxis with Lovenox Activity as tolerated Diet is carb consistent diet (2) Diabetes mellitus, new onset Status: Acute Problem Text: Fingerstick blood sugar every before meals and at bedtime Continue home dose of long-acting insulin as well as coverage for fingerstick blood sugar (3) PTSD (post-traumatic stress disorder) Status: Chronic Problem Text: Continue home meds (4) Hepatitis C Status: Chronic Problem Text: Continue home meds (5) Intravenous drug abuse Status: Acute Problem Text: Chronic history of IV drug abuse with multiple admissions in the past He is receiving Suboxone as an outpatient and will continue follow up with an outpatient physician (6) Bipolar disorder Status: Chronic Problem Text: Continue home meds Plan / VTE VTE Prophylaxis Ordered?: Yes PRITESH RAMIREZ MD Feb 14, 2019 09:53
[2019-02-14] MEDS ORDERED: ACETAMINOPHEN TAB 650MG DOSE (2X325MG) PO PRN (10:00)
[2019-02-14] MEDS: ASPIRIN 81 MG ENTERIC TAB PO SCH (10:07)
[2019-02-14] MEDS: BUPRENORPHINE/NALOXONE 8-2MG SUBLINGUAL TABLET(SUBOXONE) SL SCH (10:08)
[2019-02-14] MEDS: buPROPion **SR TABLET** (ZYBAN) 150MG PO SCH (10:34)
[2019-02-14] MEDS: KETOROLAC 30 MG/ML VIAL (J1885) IV PRN ×3 (10:34→22:57)
[2019-02-14] MEDS: HumaLOG INSULIN (NovoLOG) PER UNIT SC SCH ×4 (12:14→21:44)
[2019-02-14 14:00] VITALS: BP 111/63
[2019-02-14 22:00] VITALS: BP 145/53
--- NOTE | 2019-02-15 01:48 | IPNPDOC ---
Text Note Date of Service The patient was seen on 02/15/19. NOTE I was page and alerted the patient had lost his IV access, and while attempting to redo his IV, patient became very agitated and asked the nurse to leave the room. I went to patient's room to address the need for IV antibiotics, however, when I entered the room. Patient was agitated and fully clothed and was ready to walk out of his patient room. He asked to be left alone and did not want to be bothered by anyone. I attempted to explain to patient that we cannot allow him to leave the floor, and that he should return for his IV access. Patient became visibly agitated, started to raise his voice, and head towards the elevator. A code 25 was called, while he was in the elevator heading towards the lower floor. When responders arrived, he could not be located. A code Jeffery was then called. After a thorough search, patient could not be located. A few minutes later. Patient returned to his room, visibly angry. After calming down. Patient once again consented to a retrial of his IV. His antibiotics will be restarted once his IV is in place. VS,Fishbone, I+O VS, Fishbone, I+O Laboratory Tests 02/14/19 03:56 02/14/19 06:15 Vital Signs Date Time Temp Pulse Resp B/P (MAP) Pulse Ox O2 Delivery O2 Flow Rate FiO2 02/14/19 22:00 97.4 72 20 145/53 (83) 98 Room Air I&O- Last 24 Hours up to 6 AM 02/15/19 06:00 Intake Total 636 ml Output Total 0 ml Balance 636 ml GME ATTESTATION GME ATTESTATION My faculty preceptor for this patient encounter was physically present during the encounter and was fully available. All aspects of the patient interview, examination, medical decision making process, and medical care plan development were reviewed and approved by the faculty preceptor. The faculty preceptor is aware and concurs with the plan as stated in the body of this note and will attest to such by his/her cosignature. JOHN GUPTA DO Feb 15, 2019 01:48 PRABHU DILLON MD Feb 15, 2019 04:38
--- NOTE | 2019-02-15 05:33 | IPNPDOC ---
Text Note Date of Service The patient was seen on 02/15/19. NOTE Up-to-date. After multiple attempts, IV access could not be obtained. Patient decided that he no longer wanted at the nurses to attempt IVs. He is currently without IV access, and no antibiotics. Would recommend placement of a PICC line in the a.m. VS,Fishbone, I+O VS, Fishbone, I+O Laboratory Tests 02/14/19 06:15 Vital Signs Date Time Temp Pulse Resp B/P (MAP) Pulse Ox O2 Delivery O2 Flow Rate FiO2 02/14/19 22:00 97.4 72 20 145/53 (83) 98 Room Air I&O- Last 24 Hours up to 6 AM 02/15/19 06:00 Intake Total 636 ml Output Total 0 ml Balance 636 ml JOHN GUPTA DO Feb 15, 2019 05:33
[2019-02-15 06:00] VITALS: BP 113/59
[2019-02-15] MEDS: HumaLOG INSULIN (NovoLOG) PER UNIT SC SCH ×4 (07:30→20:13)
[2019-02-15 09:18] LABS: HEMATOCRIT 37.6 % (42.0-52.0); HEMOGLOBIN 12.3 g/dl (13.5-17.5); MEAN CORPUSCULAR HEMOGLOBIN 29.2 pg (27.0-33.0); MEAN CORPUSCULAR HGB CONC 32.7 g/dl (32.0-36.5); MEAN CORPUSCULAR VOLUME 89.3 fl (80.0-96.0); PLATELET COUNT, AUTOMATED 180 10^3/uL (150-450); RED BLOOD COUNT 4.21 10^6/uL (4.30-6.10); WHITE BLOOD COUNT 10.5 10^3/uL (4.0-10.0)
[2019-02-15 09:50] LABS: BLOOD UREA NITROGEN 9 MG/DL (7-18); CALCIUM LEVEL 8.7 MG/DL (8.5-10.1); CARBON DIOXIDE LEVEL 29 MEQ/L (21-32); CHLORIDE LEVEL 106 MEQ/L (98-107); CREATININE FOR GFR 0.64 MG/DL (0.70-1.30); GLOMERULAR FILTRATION RATE > 60.0 (>60); GLUCOSE, FASTING 71 MG/DL (70-100); POTASSIUM SERUM 4.8 MEQ/L (3.5-5.1); SODIUM LEVEL 138 MEQ/L (136-145)
[2019-02-15] MEDS: ASPIRIN 81 MG ENTERIC TAB PO SCH (10:25)
[2019-02-15] MEDS: BUPRENORPHINE/NALOXONE 8-2MG SUBLINGUAL TABLET(SUBOXONE) SL SCH ×2 (10:25→10:34)
[2019-02-15] MEDS: LEVEMIR (INSULIN DETEMIR) 1 UNITS/0.01ML SC SCH (10:26)
--- NOTE | 2019-02-15 11:12 | IPNPDOC ---
Subjective Date Seen The patient was seen on 02/15/19. Subjective Chief Complaint/HPI Patient tried to elope yesterday, he is very angry and verbally abusive to staff ,didn't want night team to start IV access. . He has no IV access and will try again to get IV pain for IV access, swelling or pain at the right arm General: Reports: Normal Appetite; Denies: Chills, Night Sweats, Fatigue, Malaise Constitutional: Denies: Chills, Fever, Malaise, Night Sweats, Weakness, Fatigue, Weight Loss, Lethargy, Other Eyes: Denies: Pain, Vision change, Conjunctivae inflammation, Eyelid inflammation, Redness, Other ENT: Denies: Head Aches, Ear Pain, Dysphagia, Sinus Congestion, Post Nasal Drip, Sore Throat, Epistaxis, Other Symptoms Skin: Denies: Rash, Lesions, Jaundice, Bruising, Itching, Dry, Breakdown, Nail Changes, Other Pulmonary: Denies: Dyspnea, Cough, Pleuritic Chest Pain, Other Symptoms Cardiovascular: Denies: Chest Pain, Palpitations, Orthopnea, Paroxysmal Noc. Dyspnea, Edema, Lt Headedness, Other Symptoms Gastrointestinal: Denies: Nausea, Vomiting, Abdominal Pain, Diarrhea, Constipation, Melena, Hematochezia, Other Symptoms Musculoskeletal: Reports: Other Symptoms Neurological: Denies: Weakness, Numbness, Incoordination, Change in speech, Confusion, Seizures, Other Symptoms Psych: Denies: Mood Normal, Anxiety, Depression, Memory Issues, Thoughts of Self Harm, Anger, Thoughts of Harming Other, Other Psych Objective Physical Examination General Exam: Positive: Alert, Other (, uncooperative and agitated) Eye Exam: Positive: PERRLA, Conjunctiva & lids normal Chest Exam: Negative: Clear to auscultation, Normal air movement, Rales, Rhonchi, Wheezing, Diminished, Other Heart Exam: Negative: Rate Normal, Tachycardic, Bradycardic, Regular Rhythm, Irregular Rhythm, Normal S1, Normal S2, Gallops, Murmurs, Rubs, Other Abdomen Exam: Negative: Normal bowel sounds, BS Hyperactive, BS Hypoactive, Soft, Tenderness, Hepatospenomegaly, Mass, Hernia, Other Extremity Exam: Positive: Tenderness (testing at the right forearm) Assessment /Plan Problems (1) Thrombophlebitis arm Status: Acute Problem Text: We will try to get access, which has to be peripheral accesses patient has risk of elopement and will not try to get central line are PICC line placed in. If IV access was not established, then we'll change his antibiotics to by mouth and also observe him clinically . He also refused blood draw today. Patient again was advised that the only way we can measure the effectiveness of his antibiotics We will try again to get blood work done today to further assess the clinical outcome All risks of not cooperating with proper medical care and recommendation were explained to him (2) Diabetes mellitus, new onset Status: Acute Problem Text: Continue home insulin and fingerstick blood sugar with insulin coverage (3) PTSD (post-traumatic stress disorder) Status: Chronic Problem Text: Continue home meds (4) Bipolar disorder Status: Resolved Problem Text: Continue home meds (5) Hepatitis C Status: Chronic (6) Intravenous drug abuse Status: Chronic Problem Text: All risks of IV drug use including endocarditis, septic emboli, and were explained to him and he understands very well Plan/VTE VTE Prophylaxis Ordered?: Yes VS, I&O, 24H, Fishbone Vital Signs/I&O Vital Signs Date Time Temp Pulse Resp B/P (MAP) Pulse Ox O2 Delivery O2 Flow Rate FiO2 02/15/19 06:00 99.3 82 18 113/59 (77) 98 Room Air I&O- Last 24 Hours up to 6 AM 02/15/19 06:00 Intake Total 636 ml Output Total 0 ml Balance 636 ml Laboratory Data 24H LABS Laboratory Tests 2 02/14/19 11:52: Bedside Glucose (Misc Panel) 223H 02/14/19 14:20: Vancomycin Level Trough 8.1L 02/14/19 16:35: Bedside Glucose (Misc Panel) 136H 02/14/19 21:38: Bedside Glucose (Misc Panel) 296H 02/15/19 09:07: Nucleated Red Blood Cells % (auto) 0.0, Anion Gap 3L, Glomerular Filtration Rate > 60.0, Calcium Level 8.7 CBC/BMP Laboratory Tests 02/15/19 09:07 Microbiology Microbiology 02/14/19 Blood Culture - Preliminary, Resulted No growth after 24 hours . All specim... PRITESH RAMIREZ MD Feb 15, 2019 11:12
[2019-02-15] MEDS: KETOROLAC 30 MG/ML VIAL (J1885) IM PRN ×2 (12:01→18:07)
[2019-02-15] MEDS ORDERED: BUPRENORPHINE/NALOXONE 8-2MG SUBLINGUAL TABLET(SUBOXONE) SL ONE (12:30)
[2019-02-15] MEDS: LINEZOLID 600MG TABLET (ZYVOX) PO SCH ×2 (13:26→20:03)
[2019-02-15 14:00] VITALS: BP 108/73
[2019-02-15 22:00] VITALS: BP 105/55
[2019-02-16] MEDS: KETOROLAC 30 MG/ML VIAL (J1885) IM PRN ×2 (00:28→08:45)
[2019-02-16 06:00] VITALS: BP 98/68
[2019-02-16 06:20] LABS: HEMATOCRIT 37.6 % (42.0-52.0); HEMOGLOBIN 12.5 g/dl (13.5-17.5); MEAN CORPUSCULAR HEMOGLOBIN 29.5 pg (27.0-33.0); MEAN CORPUSCULAR HGB CONC 33.2 g/dl (32.0-36.5); MEAN CORPUSCULAR VOLUME 88.7 fl (80.0-96.0); PLATELET COUNT, AUTOMATED 180 10^3/uL (150-450); RED BLOOD COUNT 4.24 10^6/uL (4.30-6.10); WHITE BLOOD COUNT 6.9 10^3/uL (4.0-10.0)
[2019-02-16 06:48] LABS: BLOOD UREA NITROGEN 12 MG/DL (7-18); CARBON DIOXIDE LEVEL 31 MEQ/L (21-32); CHLORIDE LEVEL 105 MEQ/L (98-107); CREATININE FOR GFR 0.66 MG/DL (0.70-1.30); GLOMERULAR FILTRATION RATE > 60.0 (>60); GLUCOSE, FASTING 128 MG/DL (70-100); POTASSIUM SERUM 4.6 MEQ/L (3.5-5.1); SODIUM LEVEL 138 MEQ/L (136-145)
[2019-02-16] MEDS: HumaLOG INSULIN (NovoLOG) PER UNIT SC SCH ×4 (08:36→20:44)
[2019-02-16] MEDS: BUPRENORPHINE/NALOXONE 8-2MG SUBLINGUAL TABLET(SUBOXONE) SL SCH (08:36)
[2019-02-16] MEDS: ASPIRIN 81 MG ENTERIC TAB PO SCH (08:36)
[2019-02-16] MEDS: LINEZOLID 600MG TABLET (ZYVOX) PO SCH (08:36)
[2019-02-16] MEDS: LEVEMIR (INSULIN DETEMIR) 1 UNITS/0.01ML SC SCH (08:37)
[2019-02-16] MEDS ORDERED: ACETAMINOPHEN *IV* 650 MG in IV 1 EA IV PRN (09:15)
[2019-02-16] MEDS: CEFTAROLINE FOSAMIL 600 MG in D5W MINI-BAG PLUS 50 ML IV SCH ×2 (10:31→21:53)
--- NOTE | 2019-02-16 11:17 | IPNPDOC ---
Subjective Date Seen The patient was seen on 02/16/19. Subjective Chief Complaint/HPI Patient is still complaining of increased swelling and pain at the right forearm and elbow. No fever General: Denies: ROS Unobtainable, Chills, Night Sweats, Fatigue, Malaise, Normal Appetite, Other Symptoms Constitutional: Denies: Chills, Fever, Malaise, Night Sweats, Weakness, Fatigue, Weight Loss, Lethargy, Other ENT: Denies: Head Aches, Ear Pain, Dysphagia, Sinus Congestion, Post Nasal Drip, Sore Throat, Epistaxis, Other Symptoms Skin: Denies: Rash, Lesions, Jaundice, Bruising, Itching, Dry, Breakdown, Nail Changes, Other Pulmonary: Denies: Dyspnea, Cough, Pleuritic Chest Pain, Other Symptoms Cardiovascular: Denies: Chest Pain, Palpitations, Orthopnea, Paroxysmal Noc. Dyspnea, Edema, Lt Headedness, Other Symptoms Gastrointestinal: Denies: Nausea, Vomiting, Abdominal Pain, Diarrhea, Constipation, Melena, Hematochezia, Other Symptoms Musculoskeletal: Reports: Other Symptoms Neurological: Denies: Weakness, Numbness, Incoordination, Change in speech, Confusion, Seizures, Other Symptoms Psych: Denies: Mood Normal, Anxiety, Depression, Memory Issues, Thoughts of Self Harm, Anger, Thoughts of Harming Other, Other Psych Objective Physical Examination General Exam: Positive: Alert, Other (, uncooperative and agitated) Eye Exam: Positive: PERRLA, Conjunctiva & lids normal Chest Exam: Negative: Clear to auscultation, Normal air movement, Rales, Rhonchi, Wheezing, Diminished, Other Heart Exam: Negative: Rate Normal, Tachycardic, Bradycardic, Regular Rhythm, Irregular Rhythm, Normal S1, Normal S2, Gallops, Murmurs, Rubs, Other Abdomen Exam: Negative: Normal bowel sounds, BS Hyperactive, BS Hypoactive, Soft, Tenderness, Hepatospenomegaly, Mass, Hernia, Other Extremity Exam: Positive: Tenderness (. Positive swelling and tenderness on touch and increased local temperature, right forearm and elbow) Assessment /Plan Problems (1) Thrombophlebitis arm Status: Acute Problem Text: Patient's WBC count is 6.9, but clinically his right forearm is still swelling increased local temperature and tenderness on touch. After talking to patient. IV access was established by the nursing staff Will switch back to ceftroline, 600 mg IV every 12 hours Will change Toradol to by mouth as patient had some irritation with the IV dosage today . We'll also request sonogram of the right upper extremity to rule out any abscess Continue present care (2) Diabetes mellitus, new onset Status: Acute Problem Text: Continue home insulin and fingerstick blood sugar with insulin coverage (3) PTSD (post-traumatic stress disorder) Status: Chronic Problem Text: Continue home meds (4) Bipolar disorder Status: Resolved Problem Text: Continue home meds (5) Hepatitis C Status: Chronic (6) Intravenous drug abuse Status: Chronic Problem Text: All risks of IV drug use including endocarditis, septic emboli, and were explained to him and he understands very well Plan/VTE VTE Prophylaxis Ordered?: Yes VS, I&O, 24H, Fishbone Vital Signs/I&O Vital Signs Date Time Temp Pulse Resp B/P (MAP) Pulse Ox O2 Delivery O2 Flow Rate FiO2 02/16/19 06:00 98.6 79 17 99 Room Air 02/16/19 06:00 98/68 (78) I&O- Last 24 Hours up to 6 AM 02/16/19 06:00 Intake Total 1200 ml Balance 1200 ml Laboratory Data 24H LABS Laboratory Tests 2 02/15/19 11:43: Bedside Glucose (Misc Panel) 259H 02/15/19 16:54: Bedside Glucose (Misc Panel) 220H 02/15/19 20:03: Bedside Glucose (Misc Panel) 139H 02/16/19 06:06: Nucleated Red Blood Cells % (auto) 0.0, Anion Gap 2L, Glomerular Filtration Rate > 60.0, Calcium Level 8.0L CBC/BMP Laboratory Tests 02/16/19 06:06 Microbiology Microbiology 02/14/19 Blood Culture - Preliminary, Resulted No Growth after 48 hours. All Specime... PRITESH RAMIREZ MD Feb 16, 2019 11:17
[2019-02-16] MEDS ORDERED: KETOROLAC 30 MG/ML VIAL (J1885) IV PRN (12:00)
--- NOTE | 2019-02-16 12:54 | REP ---
Clinical: Open wound with pain and swelling. Technique: Real time talavera scale ultrasound examination using linear high frequency transducer. Findings: Directed ultrasound examination along the posterior aspect of the right forearm at the site of maximal swelling demonstrates diffuse edema and dermal thickening consistent with cellulitis. A somewhat focal complex area is suggested measuring 3.8 x 1.2 x 3.9 cm with elements of hypervascularity suggesting the possibility of phlegmon/forming abscess. Impression: 1. Findings compatible with cellulitis. 2. A somewhat focal area of increased hyperemia and complexity raises the possibility of early forming phlegmon. Electronically Signed by Prakash Goins MD 02/16/2019 12:45 P
[2019-02-16 14:00] VITALS: BP 115/56
[2019-02-16] MEDS: KETOROLAC TROMETHAMINE 10 MG TAB PO PRN (18:05)
[2019-02-16 22:00] VITALS: BP 115/55
[2019-02-17 06:00] VITALS: BP 115/64
[2019-02-17 06:15] LABS: HEMATOCRIT 35.3 % (42.0-52.0); MEAN CORPUSCULAR HEMOGLOBIN 29.5 pg (27.0-33.0); MEAN CORPUSCULAR VOLUME 86.7 fl (80.0-96.0); PLATELET COUNT, AUTOMATED 191 10^3/uL (150-450); RED BLOOD COUNT 4.07 10^6/uL (4.30-6.10); WHITE BLOOD COUNT 6.1 10^3/uL (4.0-10.0)
[2019-02-17 06:34] LABS: BLOOD UREA NITROGEN 10 MG/DL (7-18); CALCIUM LEVEL 8.4 MG/DL (8.5-10.1); CARBON DIOXIDE LEVEL 27 MEQ/L (21-32); CHLORIDE LEVEL 105 MEQ/L (98-107); CREATININE FOR GFR 0.67 MG/DL (0.70-1.30); GLOMERULAR FILTRATION RATE > 60.0 (>60); GLUCOSE, FASTING 252 MG/DL (70-100); POTASSIUM SERUM 4.4 MEQ/L (3.5-5.1); SODIUM LEVEL 137 MEQ/L (136-145)
[2019-02-17] MEDS: KETOROLAC TROMETHAMINE 10 MG TAB PO PRN ×2 (08:38→17:28)
[2019-02-17] MEDS: ASPIRIN 81 MG ENTERIC TAB PO SCH (08:39)
[2019-02-17] MEDS: BUPRENORPHINE/NALOXONE 8-2MG SUBLINGUAL TABLET(SUBOXONE) SL SCH (08:39)
[2019-02-17] MEDS: HumaLOG INSULIN (NovoLOG) PER UNIT SC SCH ×4 (08:39→20:23)
[2019-02-17] MEDS: LEVEMIR (INSULIN DETEMIR) 1 UNITS/0.01ML SC SCH (08:40)
[2019-02-17] MEDS: CEFTAROLINE FOSAMIL 600 MG in D5W MINI-BAG PLUS 50 ML IV SCH ×2 (08:54→21:46)
--- NOTE | 2019-02-17 09:33 | IPNPDOC ---
Subjective Date Seen The patient was seen on 02/17/19. Subjective Chief Complaint/HPI Patient is still complaining of severe pain at the right forearm swelling is slightly down that yesterday General: Denies: ROS Unobtainable, Chills, Night Sweats, Fatigue, Malaise, Normal Appetite, Other Symptoms Constitutional: Denies: Chills, Fever, Malaise, Night Sweats, Weakness, Fatigue, Weight Loss, Lethargy, Other Skin: Reports: Other (, redness, swelling, right forearm and elbow and with increased local temperature) Pulmonary: Denies: Dyspnea, Cough, Pleuritic Chest Pain, Other Symptoms Cardiovascular: Denies: Chest Pain, Palpitations, Orthopnea, Paroxysmal Noc. Dyspnea, Edema, Lt Headedness, Other Symptoms Gastrointestinal: Denies: Nausea, Vomiting, Abdominal Pain, Diarrhea, Constipation, Melena, Hematochezia, Other Symptoms Musculoskeletal: Reports: Other Symptoms Neurological: Denies: Weakness, Numbness, Incoordination, Change in speech, Confusion, Seizures, Other Symptoms Objective Physical Examination General Exam: Positive: Alert, Other (, uncooperative and agitated) Eye Exam: Positive: PERRLA, Conjunctiva & lids normal Chest Exam: Negative: Clear to auscultation, Normal air movement, Rales, Rhonchi, Wheezing, Diminished, Other Heart Exam: Negative: Rate Normal, Tachycardic, Bradycardic, Regular Rhythm, Irregular Rhythm, Normal S1, Normal S2, Gallops, Murmurs, Rubs, Other Abdomen Exam: Negative: Normal bowel sounds, BS Hyperactive, BS Hypoactive, Soft, Tenderness, Hepatospenomegaly, Mass, Hernia, Other Extremity Exam: Positive: Tenderness (. Positive redness, swelling and in creased local temperature, right forearm and elbow edema, slightly decreased than yesterday) Skin Exam: Positive: Other skin issue (as per extremity exam) Assessment /Plan Problems (1) Cellulitis of right arm Status: Acute Problem Text: Cellulitis of right forearm with thrombophlebitis secondary to IV drug abuse Sonogram of the right forearm shows: 1. Findings compatible with cellulitis. 2. A somewhat focal area of increased hyperemia and complexity raises the possibility of early forming phlegmon. Continue IV sertraline as per orders WBC count is 6.1, but clinically he still has swelling, redness, tenderness slightly less edema than yesterday We'll also request surgical consult with Dr. Montero secondary to possible abscess formation Keep right upper extremity elevated Ice when necessary (2) Diabetes mellitus, new onset Status: Acute Problem Text: Continue home insulin and fingerstick blood sugar with insulin coverage (3) PTSD (post-traumatic stress disorder) Status: Chronic Problem Text: Continue home meds (4) Bipolar disorder Status: Resolved Problem Text: Continue home meds (5) Hepatitis C Status: Chronic (6) Intravenous drug abuse Status: Chronic Problem Text: All risks of IV drug use including endocarditis, septic emboli, and were explained to him and he understands very well Plan/VTE VTE Prophylaxis Ordered?: Yes VS, I&O, 24H, Fishbone Vital Signs/I&O Vital Signs Date Time Temp Pulse Resp B/P (MAP) Pulse Ox O2 Delivery O2 Flow Rate FiO2 02/17/19 06:00 98.1 77 18 115/64 (81) 95 Room Air I&O- Last 24 Hours up to 6 AM 02/17/19 06:00 Intake Total 1744 ml Output Total 100 ml Balance 1644 ml Laboratory Data 24H LABS Laboratory Tests 2 02/16/19 11:16: Bedside Glucose (Misc Panel) 203H 02/16/19 17:09: Bedside Glucose (Misc Panel) 151H 02/16/19 20:10: Bedside Glucose (Misc Panel) 213H 02/17/19 06:01: Nucleated Red Blood Cells % (auto) 0.0, Anion Gap 5L, Glomerular Filtration Rate > 60.0, Calcium Level 8.4L CBC/BMP Laboratory Tests 02/17/19 06:01 Microbiology Microbiology 02/14/19 Blood Culture - Preliminary, Resulted No Growth after 72 hours. All specime... PRITESH RAMIREZ MD Feb 17, 2019 09:33
--- NOTE | 2019-02-17 12:30 | CR ---
DATE OF CONSULTATION: 02/17/2019 REASON FOR CONSULTATION: Right arm infection, question abscess. HISTORY OF PRESENT ILLNESS: The patient is a 38-year-old male with multiple episodes of skin abscesses he describes and has had swelling of his right arm for about 5 days. Essentially, he presents with swelling, pain of the right arm and states that he fell on this arm, developed a skin tear and then an infection thereafter. In any case, the patient has been relatively a noncompliant individual and difficult patient to work with while in the hospital. This morning he is asking why things are not better when clearly his white count has returned to normal. His vitals remain stable and within normal and he has been afebrile. Overall, the swelling in his arm has decreased and an ultrasound was performed to reveal no evidence of abscess, however possible phlegmon, and my impression possibly even a hematoma. His past medical history is significant for history of diabetes mellitus, hepatitis C, bipolar disorder, posttraumatic stress syndrome, anxiety, polysubstance abuse, IV drug abuse, irritable bowel syndrome, biceps tendon repair on the left side. Physical exam reveals a 38-year-old male who looks older than stated age. HEENT is unremarkable. Lungs are clear anteriorly. Heart is regular. Abdomen soft, nontender, nondistended. Right arm reveals edema throughout his right arm. There is some mild erythema throughout the right arm. There is no true fluctuant area that I can appreciate, and there is a skin tear. Otherwise, I am not seeing any other area that seems to be pointing to this. I anticipate it is mostly reactive erythema more so than true cellulitis on the majority of this redness that is on his forearm up into his elbow area. IMPRESSION/PLAN: The patient has evidence of edema of the right arm and possible cellulitis. However the question is whether he is developing a phlegmon with a developing abscess underlying this that is hard to know at this point, but operative intervention is not indicated at this time. He is able to move his fingers well without pain, discomfort. He has good palpable pulses and no edema distally. Thus, I would recommend continue with the antibiotics and dressing changes, and would recommend starting an JENIFFER wrap from his wrist to his elbow to decrease the edema and see if that does not also improve the resolution of his current symptoms. Otherwise, keep his arm elevated as much as possible should also improve his healing process.
[2019-02-17 14:00] VITALS: BP 102/63
[2019-02-17 22:00] VITALS: BP 102/58
[2019-02-18 06:00] VITALS: BP 107/61
[2019-02-18 06:08] LABS: HEMATOCRIT 38.2 % (42.0-52.0); HEMOGLOBIN 12.5 g/dl (13.5-17.5); MEAN CORPUSCULAR HEMOGLOBIN 28.9 pg (27.0-33.0); MEAN CORPUSCULAR HGB CONC 32.7 g/dl (32.0-36.5); MEAN CORPUSCULAR VOLUME 88.2 fl (80.0-96.0); PLATELET COUNT, AUTOMATED 225 10^3/uL (150-450); RED BLOOD COUNT 4.33 10^6/uL (4.30-6.10); WHITE BLOOD COUNT 4.6 10^3/uL (4.0-10.0)
[2019-02-18 06:27] LABS: BLOOD UREA NITROGEN 12 MG/DL (7-18); CALCIUM LEVEL 8.5 MG/DL (8.5-10.1); CARBON DIOXIDE LEVEL 30 MEQ/L (21-32); CHLORIDE LEVEL 107 MEQ/L (98-107); CREATININE FOR GFR 0.59 MG/DL (0.70-1.30); GLOMERULAR FILTRATION RATE > 60.0 (>60); GLUCOSE, FASTING 156 MG/DL (70-100); POTASSIUM SERUM 4.5 MEQ/L (3.5-5.1); SODIUM LEVEL 140 MEQ/L (136-145)
[2019-02-18] MEDS: KETOROLAC TROMETHAMINE 10 MG TAB PO PRN ×2 (08:24→18:27)
[2019-02-18] MEDS: LEVEMIR (INSULIN DETEMIR) 1 UNITS/0.01ML SC SCH (09:35)
[2019-02-18] MEDS: ASPIRIN 81 MG ENTERIC TAB PO SCH (09:35)
[2019-02-18] MEDS: CEFTAROLINE FOSAMIL 600 MG in D5W MINI-BAG PLUS 50 ML IV SCH ×2 (09:35→21:24)
[2019-02-18] MEDS: HumaLOG INSULIN (NovoLOG) PER UNIT SC SCH ×4 (09:35→21:00)
[2019-02-18] MEDS: BUPRENORPHINE/NALOXONE 8-2MG SUBLINGUAL TABLET(SUBOXONE) SL SCH (09:35)
--- NOTE | 2019-02-18 10:35 | IPNPDOC ---
Subjective Date Seen The patient was seen on 02/18/19. Subjective Chief Complaint/HPI Patient is still complaining of some pain in his right arm and and some swelling General: Denies: ROS Unobtainable, Chills, Night Sweats, Fatigue, Malaise, Normal Appetite, Other Symptoms Constitutional: Denies: Chills, Fever, Malaise, Night Sweats, Weakness, Fatigue, Weight Loss, Lethargy, Other Pulmonary: Denies: Dyspnea, Cough, Pleuritic Chest Pain, Other Symptoms Cardiovascular: Denies: Chest Pain, Palpitations, Orthopnea, Paroxysmal Noc. Dyspnea, Edema, Lt Headedness, Other Symptoms Gastrointestinal: Denies: Nausea, Vomiting, Abdominal Pain, Diarrhea, Constipation, Melena, Hematochezia, Other Symptoms Genitourinary: Denies: Dysuria, Frequency, Incontinence, Hematuria, Retention, Other Symptoms Musculoskeletal: Reports: Other Symptoms Neurological: Denies: Weakness, Numbness, Incoordination, Change in speech, Confusion, Seizures, Other Symptoms Objective Physical Examination General Exam: Positive: Alert, Other (, uncooperative and agitated) Eye Exam: Positive: PERRLA, Conjunctiva & lids normal Chest Exam: Negative: Clear to auscultation, Normal air movement, Rales, Rhonchi, Wheezing, Diminished, Other Heart Exam: Negative: Rate Normal, Tachycardic, Bradycardic, Regular Rhythm, Irregular Rhythm, Normal S1, Normal S2, Gallops, Murmurs, Rubs, Other Abdomen Exam: Negative: Normal bowel sounds, BS Hyperactive, BS Hypoactive, Soft, Tenderness, Hepatospenomegaly, Mass, Hernia, Other Extremity Exam: Positive: Tenderness (. Positive redness, swelling and increased local temperature, right forearm and elbow edema, slightly decreased than yesterday) Skin Exam: Positive: Other skin issue (as per extremity exam) Assessment /Plan Problems (1) Cellulitis of right arm Status: Acute Problem Text: Cellulitis of right forearm with thrombophlebitis secondary to IV drug abuse Sonogram of the right forearm shows: 1. Findings compatible with cellulitis. 2. A somewhat focal area of increased hyperemia and complexity raises the possibility of early forming phlegmon. Continue IV antibiotics. Patient seems to be responding very well Surgical consult appreciated. No evidence of abscesses per surgery. Continue conservative medical management Keep right upper extremity elevated Ice when necessary (2) Diabetes mellitus, new onset Status: Acute Problem Text: Continue home insulin and fingerstick blood sugar with insulin coverage (3) PTSD (post-traumatic stress disorder) Status: Chronic Problem Text: Continue home meds (4) Bipolar disorder Status: Resolved Problem Text: Continue home meds (5) Hepatitis C Status: Chronic (6) Intravenous drug abuse Status: Chronic Problem Text: All risks of IV drug use including endocarditis, septic emboli, and were explained to him and he understands very well Plan/VTE VTE Prophylaxis Ordered?: Yes VS, I&O, 24H, Fishbone Vital Signs/I&O Vital Signs Date Time Temp Pulse Resp B/P (MAP) Pulse Ox O2 Delivery O2 Flow Rate FiO2 02/18/19 06:00 98.0 74 16 107/61 (76) 98 Room Air I&O- Last 24 Hours up to 6 AM 02/18/19 06:00 Intake Total 1290 ml Output Total 0 ml Balance 1290 ml Laboratory Data 24H LABS Laboratory Tests 2 02/17/19 11:23: Bedside Glucose (Misc Panel) 95 02/17/19 16:27: Bedside Glucose (Misc Panel) 262H 02/17/19 20:09: Bedside Glucose (Misc Panel) 244H 02/18/19 05:22: Nucleated Red Blood Cells % (auto) 0.0, Anion Gap 3L, Glomerular Filtration Rate > 60.0, Calcium Level 8.5 CBC/BMP Laboratory Tests 02/18/19 05:22 Microbiology Microbiology 02/14/19 Blood Culture - Preliminary, Resulted No Growth after 72 hours. All specime... PRITESH RAMIREZ MD Feb 18, 2019 10:35
[2019-02-18 14:00] VITALS: BP 119/74
--- NOTE | 2019-02-18 14:01 | IPN ---
DATE: 02/18/2019 The patient seems to be making some slow but progressive improvement of his swelling of his right forearm. He does have a little bit more swelling of his hand today. It may actually be because of some minimal tourniquet effect of his Cody wrap that was on his forearm, but he does not have any significant erythema/reactive erythema as we saw previously on the right forearm. It is much better than it was, not feeling any fluctuant area in this spot and he has been afebrile. His white count has normalized. He still has an open area with a small skin flap in this area but otherwise no other significant abnormality. IMPRESSION/PLAN: The patient seems to be healing adequately at this time. No evidence of abscess formation and no need for further intervention from a surgical standpoint. He may need physical therapy (PT) or occupational therapy (OT) to help with lymphedema/swelling in this arm which may take up to 4-6 weeks for it to completely resolve given the severity of his infection. If he is discharged to home, he can be discharged to home with antibiotic ointment and a dry dressing over that incision with a compressive component to the dressing will help expedite healing of this area. He can followup with me on an as needed basis.
[2019-02-18 22:00] VITALS: BP 107/70
[2019-02-19 06:00] VITALS: BP 106/68
[2019-02-19 07:05] LABS: BASO % 0.3 % (0.0-1.0); EOS # 0.1 10^3/uL (0.0-0.5); EOS % 3.1 % (0.0-3.0); HEMOGLOBIN 12.5 g/dl (13.5-17.5); LYMPH # 0.9 10^3/uL (1.5-5.0); LYMPH % 25.4 % (24.0-44.0); MEAN CORPUSCULAR HEMOGLOBIN 29.1 pg (27.0-33.0); MEAN CORPUSCULAR HGB CONC 32.9 g/dl (32.0-36.5); MEAN CORPUSCULAR VOLUME 88.6 fl (80.0-96.0); MONO # 0.3 10^3/uL (0.0-0.8); MONO % 9.5 % (0.0-5.0); NEUTROPHILS # 2.2 10^3/uL (1.5-8.5); NEUTROPHILS % 61.4 % (36.0-66.0); PLATELET COUNT, AUTOMATED 243 10^3/uL (150-450); RED BLOOD COUNT 4.29 10^6/uL (4.30-6.10); WHITE BLOOD COUNT 3.6 10^3/uL (4.0-10.0)
[2019-02-19 07:38] LABS: ALBUMIN 2.5 GM/DL (3.2-5.2); ALT/SGPT 12 U/L (12-78); BILIRUBIN,TOTAL 0.2 MG/DL (0.2-1.0); BLOOD UREA NITROGEN 16 MG/DL (7-18); CALCIUM LEVEL 8.9 MG/DL (8.5-10.1); CARBON DIOXIDE LEVEL 28 MEQ/L (21-32); CHLORIDE LEVEL 107 MEQ/L (98-107); CREATININE FOR GFR 0.59 MG/DL (0.70-1.30); GLOMERULAR FILTRATION RATE > 60.0 (>60); GLUCOSE, FASTING 155 MG/DL (70-100); POTASSIUM SERUM 4.2 MEQ/L (3.5-5.1); SODIUM LEVEL 140 MEQ/L (136-145); TOTAL PROTEIN 6.6 GM/DL (6.4-8.2)
[2019-02-19] MEDS: KETOROLAC TROMETHAMINE 10 MG TAB PO PRN (10:01)
[2019-02-19] MEDS: LEVEMIR (INSULIN DETEMIR) 1 UNITS/0.01ML SC SCH (10:03)
[2019-02-19] MEDS: BUPRENORPHINE/NALOXONE 8-2MG SUBLINGUAL TABLET(SUBOXONE) SL SCH (10:03)
[2019-02-19] MEDS: HumaLOG INSULIN (NovoLOG) PER UNIT SC SCH ×4 (10:03→20:56)
[2019-02-19] MEDS: ASPIRIN 81 MG ENTERIC TAB PO SCH (10:03)
[2019-02-19] MEDS: CEFTAROLINE FOSAMIL 600 MG in D5W MINI-BAG PLUS 50 ML IV SCH (10:05)
[2019-02-19] MEDS: buPROPion **SR TABLET** (ZYBAN) 150MG PO SCH ×2 (14:00→14:04)
[2019-02-19 18:00] VITALS: BP 145/92
[2019-02-19] MEDS: CEFUROXIME 500 MG TAB PO SCH (20:56)
[2019-02-19 22:00] VITALS: BP 145/80
[2019-02-20 06:00] VITALS: BP 137/88
[2019-02-20 07:17] LABS: BASO % 0.5 % (0.0-1.0); EOS # 0.1 10^3/uL (0.0-0.5); EOS % 1.3 % (0.0-3.0); HEMATOCRIT 38.1 % (42.0-52.0); HEMOGLOBIN 12.8 g/dl (13.5-17.5); LYMPH # 0.9 10^3/uL (1.5-5.0); LYMPH % 24.4 % (24.0-44.0); MEAN CORPUSCULAR HEMOGLOBIN 29.1 pg (27.0-33.0); MEAN CORPUSCULAR HGB CONC 33.6 g/dl (32.0-36.5); MEAN CORPUSCULAR VOLUME 86.6 fl (80.0-96.0); MONO # 0.5 10^3/uL (0.0-0.8); MONO % 12.4 % (0.0-5.0); NEUTROPHILS # 2.4 10^3/uL (1.5-8.5); NEUTROPHILS % 61.1 % (36.0-66.0); PLATELET COUNT, AUTOMATED 267 10^3/uL (150-450); WHITE BLOOD COUNT 3.9 10^3/uL (4.0-10.0)
[2019-02-20 07:44] LABS: ALBUMIN 2.7 GM/DL (3.2-5.2); ALT/SGPT 15 U/L (12-78); BILIRUBIN,TOTAL 0.4 MG/DL (0.2-1.0); BLOOD UREA NITROGEN 14 MG/DL (7-18); CALCIUM LEVEL 8.7 MG/DL (8.5-10.1); CARBON DIOXIDE LEVEL 30 MEQ/L (21-32); CHLORIDE LEVEL 103 MEQ/L (98-107); GLOMERULAR FILTRATION RATE > 60.0 (>60); GLUCOSE, FASTING 159 MG/DL (70-100); SODIUM LEVEL 137 MEQ/L (136-145); TOTAL PROTEIN 6.7 GM/DL (6.4-8.2)
[2019-02-20] MEDS: HumaLOG INSULIN (NovoLOG) PER UNIT SC SCH (08:52)
[2019-02-20] MEDS: CEFUROXIME 500 MG TAB PO SCH (08:53)
[2019-02-20] MEDS: buPROPion **SR TABLET** (ZYBAN) 150MG PO SCH (08:53)
[2019-02-20] MEDS: LEVEMIR (INSULIN DETEMIR) 1 UNITS/0.01ML SC SCH (08:53)
[2019-02-20] MEDS: BUPRENORPHINE/NALOXONE 8-2MG SUBLINGUAL TABLET(SUBOXONE) SL SCH (08:53)
[2019-02-20] MEDS: ASPIRIN 81 MG ENTERIC TAB PO SCH (08:53)
[2019-02-20] MEDS ORDERED: CEFU50TA PO (09:54)
[2019-02-20] MEDS ORDERED: KETO10TAB PO (09:54)
--- NOTE | 2019-02-20 11:19 | DS.PDOC ---
Discharge Summary General Date of Admission Feb 14, 2019 at 05:40 Date of Discharge 02/20/19 Discharge Summary PROCEDURES PERFORMED DURING STAY: None. ADMITTING DIAGNOSES: 1. Cellulitis right upper extremity. DISCHARGE DIAGNOSES: 1. Colitis, right upper extremity, history of IV drug abuse, diabetes mellitus, hepatitis C, bipolar disorder, posttraumatic stress syndrome, irritable bowel syndrome. COMPLICATIONS/CHIEF COMPLAINT: Septic Thrombophlebitis Of Upper Extremity. HISTORY OF PRESENT ILLNESS: White male with past medical history of diabetes mellitus type 1, history of hepatitis C treated bipolar disorder, posttraumatic stress syndrome, anxiety, history of polysubstance abuse, IV drug abuse. Irritable bowel syndrome was admitted with the diagnosis of thrombophlebitis of Rt upper extremity. Patient had refused to see Dr. Snyder last night and this morning when I tried to interview him. Patient was uncooperative and wanted to go back to sleep without giving me the history, but he did let me examine his arm. History was obtained from patient's ED records and all his old records were reviewed.. HOSPITAL COURSE: 38 years old white male with past medical history of IV drug abuse, presented with thrombophlebitis of right forearm. He was also found to have a cellulitis of the right forearm. The ultrasound of right upper extremity done which was there was no evidence of abscess formation. Patient was started on IV antibiotics, which he responded very well to conservative management was provided and surgical consult was called.. was seen by Dr. Montero but recommended on the conservative medical management with IV antibiotics and elevation. Patient. WBC count is essentially within normal limit. His swelling, redness has significantly reduced and its right forearm and right elbow are not hot, as there were during the admission. Patient was started on by mouth antibiotics since yesterday and will be discharged on the same. Extensive counseling regarding complications of IV drug abuse were explained to him and he understands very well She'll follow with PCP in one week, charged home on home antibiotics . DISCHARGE MEDICATIONS: Please see below. ALLERGIES: Please see below. PHYSICAL EXAMINATION ON DISCHARGE: VITAL SIGNS: Please see below. GENERAL: Within normal limits HEENT: PERRLA. Extraocular muscles intact NECK: Supple. Negative JVD, negative lymphadenopathy CARDIOVASCULAR EXAMINATION: S1, S2, regular RESPIRATORY EXAMINATION: Clear to A&P ABDOMINAL EXAMINATION: Benign EXTREMITIES: Decreased swelling, redness. No localizing increase in local temperature in the right forearm and elbow SKIN: Within normal limits NEUROLOGICAL EXAMINATION: Focal motor sensory deficit PSYCHIATRIC EXAMINATION: Within normal limits LABORATORY DATA: Please see below. IMAGING: Extremity ultrasound :1. Findings compatible with cellulitis. 2. A somewhat focal area of increased hyperemia and complexity raises the possibility of early forming phlegmon. PROGNOSIS: Good ACTIVITY: As tolerated. DIET: Carbohydrate consistent diet DISCHARGE PLAN: Follow with PCP in one week DISPOSITION: . Home DISCHARGE INSTRUCTIONS: 1. As per discharge instructions. ITEMS TO FOLLOWUP ON ON OUTPATIENT: 1. PCP in one week. DISCHARGE CONDITION: Stable. TIME SPENT ON DISCHARGE: 42 minutes. Vital Signs/I&Os Vital Signs Date Time Temp Pulse Resp B/P (MAP) Pulse Ox O2 Delivery O2 Flow Rate FiO2 02/20/19 06:00 98.1 77 18 137/88 (104) 97 Room Air I&O- Last 24 Hours up to 6 AM 02/20/19 06:00 Intake Total 2750 ml Output Total 0 ml Balance 2750 ml Laboratory Data Labs 24H Laboratory Tests 2 02/19/19 11:29: Bedside Glucose (Misc Panel) 303H 02/19/19 16:51: Bedside Glucose (Misc Panel) 75 02/19/19 20:22: Bedside Glucose (Misc Panel) 285H 02/20/19 07:01: Immature Granulocyte % (Auto) 0.3, Neutrophils (%) (Auto) 61.1, Lymphocytes (%) (Auto) 24.4, Monocytes (%) (Auto) 12.4H, Eosinophils (%) (Auto) 1.3, Basophils (%) (Auto) 0.5, Neutrophils # (Auto) 2.4, Lymphocytes # (Auto) 0.9L, Monocytes # (Auto) 0.5, Eosinophils # (Auto) 0.1, Basophils # (Auto) 0.0, Nucleated Red Blood Cells % (auto) 0.0, Anion Gap 4L, Glomerular Filtration Rate > 60.0, C alcium Level 8.7, Total Bilirubin 0.4#, Aspartate Amino Transf (AST/SGOT) 9, Alanine Aminotransferase (ALT/SGPT) 15, Alkaline Phosphatase 65, Total Protein 6.7, Albumin 2.7L, Albumin/Globulin Ratio 0.68L CBC/BMP Laboratory Tests 02/20/19 07:01 FSBS Laboratory Tests Test 02/19/19 11:29 02/19/19 16:51 02/19/19 20:22 Range/Units Bedside Glucose [facility]) 303 75 285 70-105 MG/DL Microbiology Microbiology 02/14/19 Blood Culture - Final, Complete NO GROWTH AFTER 5 DAYS Discharge Medications Scheduled Aspirin (Ecotrin) 81 Mg Tablet.dr, 81 MG PO DAILY, (Reported) Buprenorphine HCl/Naloxone HCl (Suboxone 8 mg-2 mg Sl Film) 1 Mis Mis, 1 STRIP SL DAILY, (Reported) Bupropion Hcl (Bupropion HCl Sr) 150 Mg Tab.sr.12h, 150 MG PO DAILY, (Reported) Cefuroxime Axetil (Cefuroxime) 500 Mg Tablet, 500 MG PO BID Insulin Aspart (Novolog Flexpen) 100 Unit/1 Ml Insuln.pen, 1 DOSE SC AC, (Reported) PER SLIDING SCALE Insulin Glargine,Hum.rec.anlog (Basaglar Kwikpen U-100) 100 Unit/1 Ml Insuln.pen, 30 UNIT SC DAILY, (Reported) Scheduled PRN Ketorolac Tromethamine (Ketorolac Tromethamine) 10 Mg Tablet, 10 MG PO Q6HP PRN for pain Allergies Coded Allergies: No Known Allergies (Verified , 02/14/19) PRITESH RAMIREZ MD Feb 20, 2019 11:19
== END 2019-02-20 11:07 | disposition home or self-care (01) | DRG 197 ==
LOC: M ED 02:39 → M ED INP 05:40 → M MSPAV 06:36
PROVIDERS: ADMIT General Practice; ATTEND Internal Medicine
DX: I80.8 Phlebitis and thrombophlebitis of other sites (principal); F15.10 Other stimulant abuse, uncomplicated; E10.9 Type 1 diabetes mellitus without complications; L03.113 Cellulitis of right upper limb; B18.2 Chronic viral hepatitis C; F43.12 Post-traumatic stress disorder, chronic; F31.9 Bipolar disorder, unspecified; K58.9 Irritable bowel syndrome, unspecified; Z79.4 Long term (current) use of insulin; Z79.82 Long term (current) use of aspirin; Z79.899 Other long term (current) drug therapy; F19.188 Other psychoactive substance abuse with other psychoactive substance-induced disorder

== ENCOUNTER 2019-04-08 05:43 | Emergency (ER) | payer OTHER ==
[~2019-04-08] VITALS: Ht 172.7 cm; Wt 68.2 kg
[~2019-04-08 05:43] MED LIST changes: +CEFU50TA PO; +ECOT81TA5 PO; +KETO10TAB PO; +NOVOINJ3 SC
[2019-04-08] MEDS ORDERED: NYST50SS PO (07:07)
[2019-04-08] MEDS ORDERED: NICO1DIS9 TOP (07:07)
[2019-04-08] MEDS ORDERED: KEFL500C17 PO (07:08)
[2019-04-08 07:24] VITALS: BP 116/69
== END 2019-04-08 07:45 | disposition home or self-care (01) ==
LOC: M ED 05:43
DX: K13.21 Leukoplakia of oral mucosa, including tongue (principal); K11.20 Sialoadenitis, unspecified; F17.200 Nicotine dependence, unspecified, uncomplicated; E11.9 Type 2 diabetes mellitus without complications; E78.5 Hyperlipidemia, unspecified; Z86.19 Personal history of other infectious and parasitic diseases; F12.10 Cannabis abuse, uncomplicated; F15.10 Other stimulant abuse, uncomplicated; Z79.82 Long term (current) use of aspirin; Z79.4 Long term (current) use of insulin; Z79.899 Other long term (current) drug therapy

== ENCOUNTER → 2019-05-02 | Outpatient (REF) | payer OTHER, MEDICAID ==
[~2019-05-02] MED LIST changes: +KEFL500C17 PO; +NICO1DIS9 TOP; +NYST50SS PO
[2019-05-02 14:03] LABS: HEMOGLOBIN A1c 10.5 %
== END ==
LOC: M LAB REF 13:02
PROVIDERS: ATTEND Nurse Practitioner Adult Health
DX: E11.9 Type 2 diabetes mellitus without complications (principal)

== ENCOUNTER 2019-06-26 23:48 | Emergency (ER) | payer MEDICAID, OTHER ==
[~2019-06-26] VITALS: Ht 172.7 cm; Wt 62.7 kg
[2019-06-27 05:02] LABS: BASO % 0.3 % (0.0-1.0); EOS # 0.1 10^3/uL (0.0-0.5); EOS % 2.6 % (0.0-3.0); HEMATOCRIT 40.9 % (42.0-52.0); HEMOGLOBIN 13.5 g/dl (13.5-17.5); LYMPH # 0.8 10^3/uL (1.5-5.0); LYMPH % 19.9 % (24.0-44.0); MEAN CORPUSCULAR HEMOGLOBIN 28.4 pg (27.0-33.0); MEAN CORPUSCULAR VOLUME 86.1 fl (80.0-96.0); MONO # 0.3 10^3/uL (0.0-0.8); MONO % 8.3 % (0.0-5.0); NEUTROPHILS # 2.7 10^3/uL (1.5-8.5); NEUTROPHILS % 68.6 % (36.0-66.0); PLATELET COUNT, AUTOMATED 255 10^3/uL (150-450); RED BLOOD COUNT 4.75 10^6/uL (4.30-6.10); WHITE BLOOD COUNT 3.9 10^3/uL (4.0-10.0)
[2019-06-27 05:22] LABS: BLOOD UREA NITROGEN 13 MG/DL (7-18); CALCIUM LEVEL 8.5 MG/DL (8.5-10.1); CARBON DIOXIDE LEVEL 29 MEQ/L (21-32); CHLORIDE LEVEL 105 MEQ/L (98-107); CREATININE FOR GFR 0.57 MG/DL (0.70-1.30); GLOMERULAR FILTRATION RATE > 60.0 (>60); GLUCOSE, FASTING 188 MG/DL (70-100); POTASSIUM SERUM 4.3 MEQ/L (3.5-5.1); SODIUM LEVEL 137 MEQ/L (136-145)
[2019-06-27 05:31] LABS: INR 1.01; PARTIAL THROMBOPLASTIN TIME 33.4 SECONDS (25.0-38.4)
[2019-06-27 05:53] VITALS: BP 124/70
== END 2019-06-27 05:55 | disposition home or self-care (01) ==
LOC: M ED 23:48
DX: L81.9 Disorder of pigmentation, unspecified (principal); E11.9 Type 2 diabetes mellitus without complications; Z86.19 Personal history of other infectious and parasitic diseases; F17.200 Nicotine dependence, unspecified, uncomplicated; F19.10 Other psychoactive substance abuse, uncomplicated; Z79.4 Long term (current) use of insulin; Z79.899 Other long term (current) drug therapy

== ENCOUNTER 2021-05-30 12:51 | Emergency (ER) | payer OTHER ==
[~2021-05-30] VITALS: Ht 172.7 cm; Wt 63.4 kg
[~2021-05-30 12:51] MED LIST changes: +BUPR150T12 PO; -BUPR150T3 PO; +CYCL-707 PO; -CYCL10TA PO; +DOXY-443 PO; -DOXY100C37 PO
[2021-05-30 12:53] VITALS: BP 134/63
[2021-05-30] MEDS ORDERED: ADME100I2 (13:28)
[2021-05-30] MEDS ORDERED: BUPR150T12 (13:28)
== END 2021-05-30 15:30 | disposition left against medical advice (07) ==
LOC: M ED 12:51
DX: Z53.29 Procedure and treatment not carried out because of patient's decision for other reasons (principal)

== ENCOUNTER → 2021-11-24 | Outpatient (CLI) | payer OTHER ==
[~2021-11-24] MED LIST changes: +ADME100I2; +BUPR-71 PO; +BUPR150T12; -BUPR150T5 PO; +ISOVUE-370 76% 100ML VIAL As Ordered ONE
== END ==
LOC: M RAD 09:10
PROVIDERS: ATTEND Otolaryngology
DX: K13.21 Leukoplakia of oral mucosa, including tongue (principal)
CPT/HCPCS: 70491; Q9967

== ENCOUNTER 2022-02-28 21:42 | Emergency (ER) | payer OTHER ==
[~2022-02-28 21:42] MED LIST changes: -ISOVUE-370 76% 100ML VIAL As Ordered ONE
[2022-02-28 22:09] VITALS: BP 106/57
[2022-02-28] MEDS ORDERED: ONDANSETRON 4MG 2ML VIAL IV ONE (22:20)
[2022-02-28] MEDS ORDERED: NS 2,400 ML in IV 1 EA IV ONE (22:20)
== END 2022-02-28 23:00 | disposition left against medical advice (07) ==
LOC: M ED 21:42
DX: R41.0 Disorientation, unspecified (principal); Z53.9 Procedure and treatment not carried out, unspecified reason; E11.9 Type 2 diabetes mellitus without complications; F32.9 Major depressive disorder, single episode, unspecified; F43.10 Post-traumatic stress disorder, unspecified; Z86.19 Personal history of other infectious and parasitic diseases; F17.290 Nicotine dependence, other tobacco product, uncomplicated; F12.10 Cannabis abuse, uncomplicated; Z79.4 Long term (current) use of insulin; Z79.899 Other long term (current) drug therapy

== ENCOUNTER → 2022-03-02 | Outpatient (REF) | payer OTHER ==
[2022-03-02 19:40] LABS: CREATININE, URINE 41.2 MG/DL; MALB URINE SIEMENS < 5.0 MG/DL; MAU/CREAT RATIO 12.1 MCG/MG (0.0-30.0)
[2022-03-02 20:04] LABS: ALBUMIN 4.3 G/DL (3.2-5.2); ALT/SGPT 29 U/L (7.0-40); BILIRUBIN,TOTAL 0.4 MG/DL (0.3-1.2); BLOOD UREA NITROGEN 14 MG/DL (9-23); CALCIUM LEVEL 9.7 MG/DL (8.5-10.1); CARBON DIOXIDE LEVEL 25 MMOL/L (20-31); CHLORIDE LEVEL 99 MMOL/L (98-107); CHOLESTEROL LEVEL 212 MG/DL (<200); CHOLESTEROL RISK RATIO 3.12 (<5); GLOMERULAR FILTRATION RATE > 60.0 (>60); GLUCOSE, FASTING 377 MG/DL (60-100); HDL CHOLESTEROL 67.9 MG/DL (>40); LDL CHOLESTEROL 130.3 MG/DL (<100); NON-HDL-C 144 MG/DL; POTASSIUM SERUM 4.5 MMOL/L (3.5-5.1); SODIUM LEVEL 136 MMOL/L (136-145); TOTAL PROTEIN 7.3 G/DL (5.7-8.2); TRIGLYCERIDES LEVEL 69 MG/DL (<150)
[2022-03-02 21:23] LABS: HEMOGLOBIN A1c 10.8 % (4.0-6.0)
== END ==
LOC: M LAB REF 16:52
PROVIDERS: ATTEND Family Medicine Addiction Medicine
DX: E11.69 Type 2 diabetes mellitus with other specified complication (principal)

== ENCOUNTER → 2022-11-30 | Outpatient (REF) | payer OTHER ==
[~2022-11-30] MED LIST changes: +INSU100I6 SC; -LEVE1INJ5 SC; +NEUR100C PO; +NYST-38 PO; -NYST50SS PO; +ZYPR2.5T2 PO
[2022-11-30 17:24] LABS: HEMOGLOBIN A1c 8.1 % (4.0-6.0)
== END ==
LOC: M LAB REF 16:20
PROVIDERS: ATTEND Pediatrics
DX: E11.69 Type 2 diabetes mellitus with other specified complication (principal)

== ENCOUNTER → 2023-05-23 | Outpatient (REF) | payer OTHER ==
[2023-05-23 15:41] LABS: CREATININE, URINE 272.4 MG/DL
[2023-05-23 15:42] LABS: ALBUMIN 3.7 G/DL (3.2-5.2); ALKALINE PHOSPHATASE 89 U/L (46-116); ALT/SGPT 11 U/L (7.0-40); AST/SGOT 11 U/L (<34); BILIRUBIN,TOTAL 0.3 MG/DL (0.3-1.2); BLOOD UREA NITROGEN 10 MG/DL (9-23); CALCIUM LEVEL 9.1 MG/DL (8.5-10.1); CARBON DIOXIDE LEVEL 30 MMOL/L (20-31); CHLORIDE LEVEL 104 MMOL/L (98-107); CHOLESTEROL LEVEL 182 MG/DL (<200); CHOLESTEROL RISK RATIO 4.36 (<5); CREATININE FOR GFR 0.61 MG/DL (0.70-1.30); GLOMERULAR FILTRATION RATE > 60.0 (>60); GLUCOSE, FASTING 142 MG/DL (60-100); HDL CHOLESTEROL 41.7 MG/DL (>40); LDL CHOLESTEROL 112.7 MG/DL (<100); NON-HDL-C 140.3 MG/DL; POTASSIUM SERUM 4.4 MMOL/L (3.5-5.1); SODIUM LEVEL 138 MMOL/L (136-145); THYROID STIMULATING HORMONE 1.273 uIU/ML (0.55-4.78); TOTAL PROTEIN 7.2 G/DL (5.7-8.2); TRIGLYCERIDES LEVEL 138 MG/DL (<150)
[2023-05-23 20:03] LABS: HEMOGLOBIN A1c 7.6 % (4.0-6.0)
== END ==
LOC: M LAB REF 12:36
PROVIDERS: ATTEND Family Medicine Addiction Medicine
DX: E11.69 Type 2 diabetes mellitus with other specified complication (principal)

== ENCOUNTER → 2023-08-30 | Outpatient (REF) | payer OTHER ==
[~2023-08-30] MED LIST changes: +DOXY-323 PO; -DOXY-443 PO
[2023-08-30 14:39] LABS: ALKALINE PHOSPHATASE 89 U/L (46-116); ALT/SGPT 37 U/L (7.0-40); AST/SGOT 17 U/L (<34); BILIRUBIN,TOTAL 0.4 MG/DL (0.3-1.2); BLOOD UREA NITROGEN 12 MG/DL (9-23); CALCIUM LEVEL 9.5 MG/DL (8.5-10.1); CARBON DIOXIDE LEVEL 31 MMOL/L (20-31); CHLORIDE LEVEL 106 MMOL/L (98-107); CHOLESTEROL LEVEL 147 MG/DL (<200); CHOLESTEROL RISK RATIO 2.53 (<5); CREATININE FOR GFR 0.59 MG/DL (0.70-1.30); GLOMERULAR FILTRATION RATE > 60.0 (>60); GLUCOSE, FASTING 204 MG/DL (60-100); HDL CHOLESTEROL 57.9 MG/DL (>40); LDL CHOLESTEROL 74.9 MG/DL (<100); NON-HDL-C 89.1 MG/DL; POTASSIUM SERUM 4.8 MMOL/L (3.5-5.1); SODIUM LEVEL 141 MMOL/L (136-145); TOTAL PROTEIN 7.2 G/DL (5.7-8.2); TRIGLYCERIDES LEVEL 71 MG/DL (<150)
[2023-08-30 15:06] LABS: HEMOGLOBIN A1c 9.1 % (4.0-6.0)
== END ==
LOC: M LAB REF 11:45
PROVIDERS: ATTEND Family Medicine Addiction Medicine
DX: E11.69 Type 2 diabetes mellitus with other specified complication (principal)

== ENCOUNTER → 2024-01-16 | Outpatient (REF) | payer OTHER ==
[~2024-01-16] MED LIST changes: -DOXY-323 PO; +DOXY-441 PO
[2024-01-16 12:53] LABS: CREATININE, URINE 36.7 MG/DL
[2024-01-16 12:54] LABS: MALB URINE SIEMENS < 3.0 MG/L; MAU/CREAT RATIO 8.1 MCG/MG (0.0-30.0)
[2024-01-16 18:47] LABS: ALBUMIN 4.1 G/DL (3.2-5.2); ALKALINE PHOSPHATASE 79 U/L (46-116); ALT/SGPT 27 U/L (7.0-40); AST/SGOT 16 U/L (<34); BILIRUBIN,TOTAL 0.5 MG/DL (0.3-1.2); BLOOD UREA NITROGEN 14 MG/DL (9-23); CALCIUM LEVEL 9.4 MG/DL (8.5-10.1); CARBON DIOXIDE LEVEL 28 MMOL/L (20-31); CHLORIDE LEVEL 105 MMOL/L (98-107); CHOLESTEROL LEVEL 136 MG/DL (<200); CHOLESTEROL RISK RATIO 2.45 (<5); CREATININE FOR GFR 0.65 MG/DL (0.70-1.30); GLOMERULAR FILTRATION RATE > 60.0 (>60); GLUCOSE, FASTING 173 MG/DL (60-100); HDL CHOLESTEROL 55.3 MG/DL (>40); LDL CHOLESTEROL 67.1 MG/DL (<100); NON-HDL-C 80.7 MG/DL; POTASSIUM SERUM 4.9 MMOL/L (3.5-5.1); SODIUM LEVEL 135 MMOL/L (136-145); TOTAL PROTEIN 7.4 G/DL (5.7-8.2); TRIGLYCERIDES LEVEL 68 MG/DL (<150)
[2024-01-16 18:49] LABS: THYROID STIMULATING HORMONE 1.164 uIU/ML (0.55-4.78)
== END ==
LOC: M LAB REF 11:37
PROVIDERS: ATTEND Family Medicine Addiction Medicine
DX: E11.69 Type 2 diabetes mellitus with other specified complication (principal)

== ENCOUNTER → 2025-02-17 | Outpatient (REF) | payer OTHER ==
[2025-02-17 13:53] LABS: CREATININE, URINE 111.1 MG/DL; MALB URINE SIEMENS < 3.0 MG/L
== END ==
LOC: M LAB REF 12:25
PROVIDERS: ATTEND Family Medicine Addiction Medicine
DX: E11.9 Type 2 diabetes mellitus without complications (principal)

== ENCOUNTER → 2025-02-17 | Outpatient (REF) | payer OTHER ==
[2025-02-17 13:19] LABS: ALT/SGPT 26 U/L (7.0-40); AST/SGOT 25 U/L (<34); CALCIUM LEVEL 9.3 MG/DL (8.5-10.1); CARBON DIOXIDE LEVEL 29 MMOL/L (20-31); CHLORIDE LEVEL 106 MMOL/L (98-107); CHOLESTEROL LEVEL 123 MG/DL (<200); CHOLESTEROL RISK RATIO 2.46 (<5); CREATININE FOR GFR 0.79 MG/DL (0.70-1.30); GLOMERULAR FILTRATION RATE > 90.0 (>60); LDL CHOLESTEROL 57.0 MG/DL (<100); NON-HDL-C 73.0 MG/DL; POTASSIUM SERUM 4.5 MMOL/L (3.5-5.1); SODIUM LEVEL 141 MMOL/L (136-145); TRIGLYCERIDES LEVEL 80 MG/DL (<150)
[2025-02-17 13:33] LABS: ESTIMATED AVERAGE GLUCOSE 160.0 MG/DL (60-110)
== END ==
LOC: M LAB REF 12:43
PROVIDERS: ATTEND Family Medicine Addiction Medicine
DX: E11.9 Type 2 diabetes mellitus without complications (principal)